=== PATIENT | male | born 1985 | race Caucasian/White ===

== ENCOUNTER → 2019-08-17 13:40 | Outpatient (CLI) | payer MEDICAID, SELFPAY ==
[2019-08-17 15:27] LABS: AST(SGOT) 21 U/L (15-37); Alanine Aminotransfer ALT/SGPT 29 U/L (16-61); Albumin, Serum 4.5 g/dL (3.2-5.0); Alkaline Phosphatase 79 U/L (45-117); Bilirubin, Direct 0.16 mg/dL (0.00-0.30); Globulin 3.5 g/dL (2.2-4.2)
[2019-08-18 11:51] LABS: Hepatitis B Surface Antigen Non-Reactive (Nonreactive); Hepatitis C Antibody Non-Reactive (Nonreactive)
== END ==
DX: R11.0 Nausea (principal); R53.81 Other malaise; R63.0 Anorexia
CPT/HCPCS: 36415; 80076; 86803; 87340

== ENCOUNTER 2019-10-03 19:21 | Emergency (ER) | payer MEDICAID, SELFPAY ==
[2019-10-03 19:22] VITALS: BP 124/69; PULSE 75; RESP 14; TEMP 36.4; O2SAT 96; BMI 23.9
--- NOTE | 2019-10-03 20:22 | ED.VISSUMM ---
- ER Visit Summary Date of Service: 10/03/19 Chief Complaint: Cough, vomiting and diarrhea History of Present Illness: The patient is a 34 M with no primary care physician. He reports that he has periumbilical abdominal pain that began 3 days ago. Is a cramping pain Zeta 10 at worst and 6 out of 10 currently. Is worsened by work. Is relieved by sleep. He reports he said nausea and been vomiting. He is vomited twice. No blood in his emesis. He has 4-5 episodes of diarrhea. No blood in stools or black tarry stools. Patient also complains of subjective fever, chills, myalgias. He has sinus drainage and a cough productive yellow sputum without blood. He denies any chest pain or shortness of breath. No sore throat. Physical Examination: Vitals: Stable. Afebrile. General: Well-nourished and well-developed. Head: Normocephalic atraumatic. Neck: Supple, no lymphadenopathy. No JVD. Nontender. Cardiovascular: Regular rate and rhythm. No murmurs. Respiratory: No respiratory distress. Clear to auscultation bilaterally. Abdominal: Soft, nontender, nondistended, normal bowel sounds. No guarding, rebound, or peritoneal signs. Back: Nontender. Extremities: Nontender, no edema. Skin: Normal color, no rash. Neurologic: Alert and oriented ?3. Cranial nerves II through XII are intact. Normal strength and sensation. Psych: Normal affect. Emergency Department Course and Treatment: Patient refused an IV, blood work, or influenza test. He did not want anything for nausea or pain. Treatment Plan: Patient be discharged with Zofran. Instructed to push fluids. [facility] 3 to 5 days if not improving. Return to the emergency department for any worsening symptoms. Disposition: To home in improved and stable condition. Impression: 1. URI. 2. Vomiting/diarrhea. This note was generated with [employer] dictation software. It may contain incorrect words, spelling, and punctuation that were not noted in review of the chart prior to signing ED Disposition - Plan for ED Patient: Disposition: Home or Assisted Living Instructions: VOMITING AND DIARRHEA, Nonspecific (Adult) Prescriptions: Ondansetron [Zofran Odt] 4 mg PO Q8H PRN PRN #10 tab PRN Reason: Nausea Prescription Printed Referrals: Viky Mcduffie [NON-STAFF] - 3-5 Days if not improving
[2019-10-03 20:41] VITALS: RESP 16
== END 2019-10-03 20:42 | disposition home or self-care (01) ==
LOC: ED 20:35
PROVIDERS: Emergency Provider Emergency Medicine
DX: J06.9 Acute upper respiratory infection, unspecified (principal); R11.2 Nausea with vomiting, unspecified; R19.7 Diarrhea, unspecified; R10.33 Periumbilical pain; F17.200 Nicotine dependence, unspecified, uncomplicated
CPT/HCPCS: 99282

== ENCOUNTER 2019-11-17 12:39 | Emergency (ER) | payer MEDICAID, SELFPAY ==
[2019-11-17 12:39] VITALS: BP 141/76; PULSE 74; RESP 16; TEMP 36.2; O2SAT 95; BMI 25.0
--- NOTE | 2019-11-17 14:21 | ED.DCSUM_ITS ---
History of Present Illness Chief Complaint: Other, Pain/Inj Informant: Patient Onset: Today Context: Gradual Onset Timing: Continuous Narrative: Patient is a 34-year-old male with no significant past medical history pres enting with atraumatic right neck pain. Patient states he did not sleep well last night and noticed that his neck was bothering him. He feels that there is a knot in his neck. Patient states he has had this 2 or 3 times in the past. It only seems to be associated with stress. Has not taken anything for the pain. He has no associated headache. He denies any vision changes. He denies any fever or chills. He has difficulty swallowing. Denies any voice changes. Eyes any other complaints at this time. Past Medical History - Allergies and Home Meds Allergies/Adverse Reactions: Allergies No Known Allergies Allergy (Verified 10/03/19 19:21) Primary Care Physician: Care Physician,No Primary [Primary Care Provider] - Past Medical History: None Surgical History: noncontributory Smoking Status: Current every day smoker Review of Systems General: Denies: Chills, Fever, Sweats Eyes: Denies: Visual changes - bilaterally, Diplopia ENT: Denies: Rhinorrhea, Sore throat Cardiovascular: Denies: Chest pain, Palpitations Respiratory: Denies: Dyspnea, Cough, Dyspnea on exertion Gastrointestinal: Denies: Abdominal pain, Nausea, Vomiting, Diarrhea, Melena, Hematochezia Genitourinary: Denies: Dysuria, Hematuria, Frequency Musculoskeletal: Reports: Neck pain. Denies: Myalgias, Back pain, Extremity Pain Skin: Denies: Rash, Wounds Neurological: Denies: Headache, Weakness, Numbness Physical Exam Vital Signs/Narrative: Vital Signs Temp Pulse Resp BP Pulse Ox 11/17/19 12:39 97.2 F L 74 16 141/76 H 95 Inital Vital Signs reviewed: Yes General: Well nourished, Well developed, No Acute Distress Head: Normocephalic, Atraumatic Eyes: Perrl, EOMI ENT: Moist mucous membranes, No rhinorrhea, TM's clear Neck: Supple, No lymphadenopathy, No JVD, - - Meningeal signs. No midline tenderness. Right paraspinal tenderness to palpation with associated knot of the muscle. Cardiovascular: Regular rate, Regular rhythm, No murmurs Respiratory: No distress, CTA bilaterally, Chest nontender Abdomen: Soft, Nontender, Nondistended, Normal bowel sounds Back: Nontender, Normal Inspection Extremities: Nontender, No edema Skin: Normal color, No rash Neurological: Alert, Oriented x3, Cranial nerves II-XII grossly intact, Normal Strength, Normal Sensation Psychological: Normal affect, Normal Mood Diagnostic/Tx/Re-eval - Medical Decision Making Evaluate for neck pain. Appears to be secondary to muscle spasm. He will be started on NSAID therapy for this. He is offered a muscle relaxant but declines it. He is counseled on warm heat for the spasm. He will be referred for a PCP as he does not currently have 1. Patient is well-appearing. I do not think imaging or lab work is indicated at this time. Patient is counseled on signs and symptoms requiring return to the emergency room. Patient verbalizes agreement and understand this plan. Patient discharged home in stable and improved condition. ED Disposition - Plan for ED Patient: Disposition: Home or Assisted Living Diagnosis: Muscle spasms of neck Instructions: NECK SPASM, No Trauma Prescriptions: Ibuprofen [Motrin] 600 mg PO Q8H PRN PRN #20 tab PRN Reason: Pain/Inflammation Prescription Printed Referrals: Lidia Osorio MD [STAFF PHYSICIAN] -
[2019-11-17] MEDS: Ibuprofen 600 MG Tablet PO (14:28)
== END 2019-11-17 14:33 | disposition home or self-care (01) ==
LOC: ED 14:26
PROVIDERS: Emergency Provider Emergency Medicine
DX: M62.838 Other muscle spasm (principal); M54.2 Cervicalgia; F17.200 Nicotine dependence, unspecified, uncomplicated
CPT/HCPCS: 99283

== ENCOUNTER 2020-01-10 15:41 | Emergency (ER) | payer MEDICAID, SELFPAY ==
[2020-01-10 15:42] VITALS: BP 123/75; PULSE 62; RESP 18; TEMP 36.7; O2SAT 100; BMI 22.8
--- NOTE | 2020-01-10 16:08 | ED.VISSUMM ---
- ER Visit Summary Date of Service: 01/10/20 Chief Complaint: [Laceration left forearm] History of Present Illness: The patient is a 34 M [presents the emergency department via EMS with a laceration to his left forearm. Patient states that he was cutting some frozen sausages and he was trying to get several that were stuck together apart and knife slipped and accidentally lacerated his left forearm. There is a question as to what actually happened and that patient initially told EMS that he was cutting open a bag of Doritos. Patient apparently also has a next-door neighbor that called the police and had concerns about potentially self-inflicted wound given that he was believed to been arguing with his girlfriend who is in [place]. Patient denies suicidal ideation or desire to harm himself. He does state that he has been arguing with his girlfriend for some time who is in [place] because she is not coming up to be with him in [place] and she has been in [place] for the last 5 months. Patient states that he got himself clean off of opiates and finished intense outpatient therapy and has been clean for the last 5 months. He denies feeling depressed or suicidal.] Physical Examination: HEENT-PERRLA, EOMI. Cranial nerves II through XII grossly intact. TMs clear. Mucous membranes moist. No adenopathy. Cardiovascular-regular rate and rhythm without murmur or ectopy Lungs-clear to auscultation, chest wall stable without crepitus or subcu emphysema Abdomen-normoactive bowel sounds, soft, nontender, no rebound or rigidity, no peritoneal signs. Extremities-intact ?4, normal range of motion, normal pulses. Left forearm-patient has a 4 cm horizontal laceration over the mid volar forearm. It is into the fat. No tendon involvement noted. He has normal range of motion of all digits in flexion extension against resistance. He is neurovascular intact. [] Test Results: None indicated [] Emergency Department Course and Treatment: [Laceration repair-wound sterilely draped and prepped. Wound cleansed with Shur-Clens and irrigated with copious saline. Wound anesthetized locally with 1% lidocaine total of 5 cc. Using 5-0 nylon a total of 6 single ruptured sutures placed with good wound edge approximation. Patient taught procedure well. Clean dressing applied.] Treatment Plan: Follow-up with physician onboarding specialist for no doc in 10 days for suture removal. Patient advised to return if increasing pain, redness, swelling, purulent drainage, or condition should worsen anyway. Patient will receive a tetanus booster. [] Disposition: Discharged home in stable condition [] Impression: [Left forearm laceration 4 cm-simple repair] This note was generated with [employer] dictation software. It may contain incorrect words, spelling, and punctuation that were not noted in review of the chart prior to signing ED Disposition - Plan for ED Patient: Referrals: Care Physician,No Primary [Primary Care Provider] -
--- NOTE | 2020-01-10 16:12 | ED.DEP ---
ED Disposition - Plan for ED Patient: Instructions: LACERATION, Extrem (Suture, Staple or Tape) Referrals: Care Physician,No Primary [Primary Care Provider] - Rafi Vaca III, MD [STAFF PHYSICIAN] - 10 Day for suture removal
[2020-01-10] MEDS: Diphth,Pertuss(Acell),Tet Vac 0.5 ML Vial IM (16:26)
--- NOTE | 2020-01-10 16:40 | CM.ED ---
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 INTRODUCED ROLE AND REASON FOR REFERRAL. PATIENT REPORTS DOES NOT HAVE TRANSPORTATION HOME. DISCUSSED OPTIONS. PATIENT DECIDED TO WALK HOME. PATIENT INQUIRED ABOUT TAKING A BLANKET HE DID NOT HAVE A COAT. RIANA CARRENO OBTAINED SWEATSHIRT FROM [facility] FOR PATIENT. PLAN: HOME Shaina AMIN MSW, FLOOR INSTALLER.
== END 2020-01-10 16:51 | disposition home or self-care (01) ==
LOC: ED 16:08
PROVIDERS: Emergency Provider Emergency Medicine
DX: S51.812A Laceration without foreign body of left forearm, initial encounter (principal); W26.0XXA Contact with knife, initial encounter; Y93.9 Activity, unspecified; Y92.9 Unspecified place or not applicable; Z72.0 Tobacco use
CPT/HCPCS: 12002; 90471; 90715; 99284

== ENCOUNTER 2020-01-20 15:00 | Emergency (ER) | payer MEDICAID, SELFPAY ==
[2020-01-20 15:01] VITALS: BP 128/70; PULSE 86; RESP 14; TEMP 36.6; O2SAT 100; BMI 25.3
--- NOTE | 2020-01-20 15:13 | ED.VISSUMM ---
- ER Visit Summary Date of Service: 01/20/20 Chief Complaint: Suture removal History of Present Illness: The patient is a 34 M with no primary care physician. Ports 2 weeks ago he cut his left forearm with a knife. His tetanus is up-to-date. He had stitches placed. He denies any drainage, pain, or fever. Physical Examination: Vitals: Stable. Afebrile. General: Well-nourished and well-developed. Head: Normocephalic atraumatic. Neck: Supple, no lymphadenopathy. No JVD. Nontender. Cardiovascular: Regular rate and rhythm. No murmurs. Respiratory: No respiratory distress. Clear to auscultation bilaterally. Abdominal: Soft, nontender, nondistended, normal bowel sounds. No guarding, rebound, or peritoneal signs. Back: Nontender. Extremities: Well-healed incision to his left forearm. No evidence of infection. [address] Nontender, no edema. Skin: Normal color, no rash. Neurologic: Alert and oriented ?3. Cranial nerves II through XII are intact. Normal strength and sensation. Psych: Normal affect. Emergency Department Course and Treatment: Patient's had his sutures removed. He tolerated this well. Treatment Plan: Instructed to follow-up with the [facility] as needed. Disposition: To home in improved and stable condition. Impression: 1. Suture removal left forearm. This note was generated with [employer] dictation software. It may contain incorrect words, spelling, and punctuation that were not noted in review of the chart prior to signing ED Disposition - Plan for ED Patient: Instructions: ED Stitches/Staple Removal No Complication Referrals: Viky Mcduffie [NON-STAFF] - As Needed
[2020-01-20 15:40] VITALS: BP 114/65; PULSE 74; RESP 18; O2SAT 98
== END 2020-01-20 15:50 | disposition home or self-care (01) ==
LOC: ED 15:30
PROVIDERS: Emergency Provider Emergency Medicine
DX: Z48.02 Encounter for removal of sutures (principal); F17.200 Nicotine dependence, unspecified, uncomplicated
CPT/HCPCS: 99282

== ENCOUNTER 2020-02-07 08:39 | Emergency (ER) | payer MEDICAID, SELFPAY ==
[2020-02-07 08:40] VITALS: BP 138/77; PULSE 81; RESP 18; TEMP 36.7; O2SAT 99; BMI 25.8
--- NOTE | 2020-02-07 09:02 | RAD_ITS ---
STUDY: X-RAY CHEST REASON FOR EXAM: Male, 34 years old. Cough, fever -- general illness x 1 week TECHNIQUE: Single AP portable view of the chest. COMPARISON: Comparison is made with prior examination dated July 04, 2017. FINDINGS: The lungs are clear and expanded. There is no demonstrated pleural abnormality. Normal size heart. Normal mediastinum and anselmo. Normal visualized pulmonary arteries. Normal visualized aortic arch and descending thoracic aorta. Normal visualized thoracic spine. Normal visualized ribs, clavicles, and shoulders. There is no demonstrated abnormality of the visualized soft tissue structures of the upper abdomen. RAD/Chest 1 View (Portable) IMPRESSION: Normal x-ray examination of the chest. Electronically Signed: Anup Watts, at 10:41 EDT , Service support ,
--- NOTE | 2020-02-07 09:03 | CT_ITS ---
STUDY: CT ABDOMEN AND PELVIS WITH CONTRAST REASON FOR EXAM: Male, 34 years old. FEVER, SOB, ABD PAIN RADIATION DOSAGE (If Supplied By Facility): CTDIvol = ( 10.845 ) mGy, DLP = ( 420.61 ) mGycm TECHNIQUE: Transaxial images were obtained from the dome of the diaphragm to the symphysis pubis with oral contrast. Oral and amp; IV Gastrografin and amp; 100mL Isovue-370 was administered. Sagittal and coronal images were reconstructed. Individualized dose optimization techniques were used for this CT. COMPARISON: None. FINDINGS: Minimal bibasilar atelectasis. The visualized portions of the heart are within normal limits. Normal liver. Normal gallbladder and extrahepatic biliary system. Normal spleen. Normal pancreas. Normal bilateral adrenal glands. Normal right kidney. There is a 1.1 cm cyst in the lower pole of the left kidney. Normal visualized stomach. Normal small intestine. Normal colon. The appendix is visualized and appears normal. Normal abdominal aorta. Normal inferior vena cava. Normal retroperitoneum. Normal urinary bladder. Normal abdominal wall. Normal osseous structures. CT/Abdomen/Pelvis WITH Contrast IMPRESSION: Normal enhanced CT of the abdomen and pelvis. Electronically Signed: Anup Watts, at 12:10 EDT , Service support ,
--- NOTE | 2020-02-07 09:12 | ED.VISSUMM ---
- ER Visit Summary Date of Service: 02/07/20 Chief Complaint: Fever, myalgias History of Present Illness: The patient is a 34 M presenting with fever and myalgias. Patient states this has been ongoing for the past week. He states he has had intermittent subjective fevers. He has not checked his temperature. He complains of chills. He has had a nonproductive cough and mild shortness of breath. He also complains of lower abdominal pain and diarrhea. Denies nausea or vomiting. He also complains of dysuria. Denies penile discharge or rash. He stopped taking Suboxone 2 weeks ago. States he has been in withdrawal before and this does not feel like his typical withdrawal symptoms. Denies sick contacts. Denies recent travel. Denies other complaints. Physical Examination: Vitals are stable. Patient is afebrile. Alert no acute distress. Pulse ox 99% on room air HEENT exam is unremarkable. Neck is supple. No meningismus Lungs are clear and equal bilaterally. No respiratory distress Heart is regular rate and rhythm. Abdomen is soft mild lower quadrant tenderness with no guarding rebound : No testicular tenderness Extremities are unremarkable. Skin is warm and dry. No rash No focal neurologic deficit. Remainder of exam is unremarkable. Emergency Department Course and Treatment: Patient was given IV fluids, Toradol, Zofran. CBC, chemistries unremarkable. Urinalysis unremarkable. Influenza negative. Chest x-ray normal. CT abdomen pelvis was obtained and shows normal enhanced CT of the abdomen and pelvis. On reevaluation, patient is feeling improved. He is given prescription for Bentyl. Due to the current coronavirus pandemic, he is advised to self quarantine and use social distancing. Advised to follow-up with primary care physician. Advised return to ED for worsening complaints. Disposition: Discharge home Impression: Viral syndrome This note was generated with [employer] dictation software. It may contain incorrect words, spelling, and punctuation that were not noted in review of the chart prior to signing ED Disposition - Plan for ED Patient: Instructions: ED Viral Syndrome Prescriptions: Dicyclomine HCl [Bentyl] 20 mg PO TIDAC #20 cap Prescription Printed Ibuprofen [Ibu] 600 mg PO TID PRN PRN #30 tab PRN Reason: Fever Prescription Printed Referrals: Calvin Jimenez MD [STAFF PHYSICIAN] - Care Physician,No Primary [Primary Care Provider] -
[2020-02-07] MEDS: 0.9% Normal Saline 1,000 ML 1000 ML IV (09:15)
[2020-02-07 09:43] LABS: Bacteria 0 SEEN /hpf (None Seen); Mucous, Urine 0 SEEN /hpf (<or=2+); Red Blood Cells-Urine 0 SEEN /hpf (0-5); White Blood Cells 0 SEEN /hpf (0-5)
[2020-02-07 09:47] LABS: Absolute Lymphocyte Count 3.13 X10^3/uL (0.83-4.51); Absolute Neutrophil Count 5.5 X10^3/uL (2.0-7.7); Basophil# 0.04 X10^3/uL; Basophil% 0.4 % (0-1); Eosinophil# 0.16 X10^3/uL; Eosinophils% 1.7 % (0-5); Hematocrit 43.2 % (40-54); Hemoglobin 14.4 g/dL (13.0-16.5); Lymphocyte # 3.13 X10^3/ul (4.0); Lymphocyte % 32.5 % (19-41); Mean Corp Hgb Conc 33.3 g/dL (32-36); Mean Corpuscular Hgb 27.4 pg (27.0-32.0); Mean Corpuscular Volume 82.3 fL (80-94); Mean Platelet Vol. 9.2 fl (6.2-12.0); Monocyte# 0.72 X10^3/uL; Monocyte% 7.5 % (0-10); NRBC Flagged by Analyzer 0 % (0-5); Neutrophil # 5.47 X10^3/uL (2.7-7.7); Neutrophil % 56.9 % (47-70); Platelet Count 222 K/mm3 (150-450); RBC Distribution Width SD 38.5 fl (35.1-43.9); Red Blood Count 5.25 M/mm3 (4.6-6.2); White Blood Count 9.6 K/mm3 (4.4-11.0)
[2020-02-07 10:00] LABS: Color, Urine Yellow (Yellow); Glucose, Dipstick Normal (Normal); Ketone-Dipstick Negative (Negative); Leukocyte Esterase-Dipstick Negative /ul (Negative); Nitrite-Dipstick Negative (Negative); Occult Blood-Urine Negative /ul (Negative); Protein-Dipstick Negative (Negative); Urine Bilirubin Dipstick Negative (Negative); Urine Clarity Clear (Clear); Urine Urobilinogen Normal (Normal); Urine pH 6.5 (5.0 - 8.0)
[2020-02-07 10:05] LABS: Anion Gap 5 (5-15); BUN 9 mg/dL (7-18); BUN/Creat Ratio 10.3 RATIO (10-20); Calcium,Total 9.1 mg/dL (8.5-10.1); Chloride 111 mmol/L (98-107); Creatinine, Serum 0.87 mg/dL (0.70-1.30); EST Glomerular Filtration Rate 107 mL/min (>60); Est Glom Filt Rate - Afr Amer 130 mL/min (>60); Estimated Creatinine Clearance 113.97 ml/min; Glucose 73 mg/dL (74-106); Potassium 3.8 mmol/L (3.5-5.1); Sodium Level 142 mmol/L (136-145)
[2020-02-07 10:14] LABS: Squamous Epithelial Cells - UA 0-5 SEEN /hpf (0-5)
[2020-02-07] MEDS: Ketorolac 15 MG/ML Vial IV (10:15)
[2020-02-07] MEDS: Ondansetron 4 MG/2 ML Vial IV (10:15)
[2020-02-07 11:52] VITALS: RESP 18
--- NOTE | 2020-02-07 12:12 | ED.DEP ---
ED Disposition - Plan for ED Patient: Instructions: ED Viral Syndrome Prescriptions: Dicyclomine HCl [Bentyl] 20 mg PO TIDAC #20 capsule Ibuprofen [Ibu] 600 mg PO TID PRN PRN #30 tablet PRN Reason: Fever Referrals: Care Physician,No Primary [Primary Care Provider] - Calvin Jimenez MD [STAFF PHYSICIAN] -
== END 2020-02-07 12:37 | disposition home or self-care (01) ==
PROVIDERS: Emergency Provider Emergency Medicine
DX: B34.9 Viral infection, unspecified (principal); R68.83 Chills (without fever); R05 Cough; R06.00 Dyspnea, unspecified; R10.30 Lower abdominal pain, unspecified; R19.7 Diarrhea, unspecified; R30.0 Dysuria; M79.10 Myalgia, unspecified site
CPT/HCPCS: 71045; 74177; 80048; 81001; 85025; 87804; 96361; 96374; 96375; 99285; J7030; Q9967; A4216; J2405

== ENCOUNTER 2020-02-29 21:41 | Emergency (ER) | payer MEDICAID, SELFPAY ==
[2020-02-29 21:41] VITALS: BP 142/96; PULSE 114; RESP 18; TEMP 36.1; O2SAT 97; BMI 23.6
[2020-02-29 21:44] VITALS: BP 142/96; PULSE 114; RESP 18; TEMP 36.1; O2SAT 97
--- NOTE | 2020-02-29 22:00 | ED.VIS.GEN ---
History of Present Illness Chief Complaint: Diarrhea Informant: Patient Onset: Days - 2 days Current Severity: Mild Maximum Severity: Mild Narrative: Patient presents with a 2-day history of diarrhea and mild abdominal cramping. No fever or chills. He states he does work at [employer] but is unsure if he may have food poisoning. He was seen here on February 06 with fever myalgias. At that time he had some abdominal pain and diarrhea as well. Labs and CT scan were unremarkable. - Past Medical History (1) Substance abuse Status: Chronic Past Medical History - Allergies and Home Meds Allergies/Adverse Reactions: Allergies No Known Allergies Allergy (Verified 02/07/20 08:42) Primary Care Physician: Care Physician,No Primary [Primary Care Provider] - Prior records reviewed: Yes Surgical History: noncontributory Smoking Status: Current every day smoker Drugs: Heroin, - - Methamphetamine Review of Systems General: Denies: Chills, Fever Eyes: Denies: Visual changes - bilaterally ENT: Denies: Bilateral ear pain Cardiovascular: Denies: Chest pain Respiratory: Denies: Dyspnea, Cough Gastrointestinal: Reports: Abdominal pain, Diarrhea. Denies: Vomiting Genitourinary: Denies: Dysuria Musculoskeletal: Denies: Extremity Pain Skin: Denies: Rash Neurological: Denies: Headache Hematologic: Denies: Easy bruising, Easy bleeding Allergy: Denies: Uticaria Physical Exam Vital Signs/Narrative: Vital Signs Temp Pulse Resp BP Pulse Ox 02/29/20 21:44 96.9 F L 114 H 18 142/96 H 97 02/29/20 21:41 96.9 F L 114 H 18 142/96 H 97 Inital Vital Signs reviewed: Yes General: Well nourished, Well developed Head: Normocephalic ENT: Moist mucous membranes Neck: Supple Cardiovascular: Regular rate, Regular rhythm Respiratory: No distress, CTA bilaterally Abdomen: Soft, Nontender, Hypoactive bowel sounds Extremities: Nontender Skin: Normal color Neurological: Alert, Oriented x3 Psychological: Normal affect Diagnostic/Tx/Re-eval - Medical Decision Making Patient's recent work-up was reviewed. Labs were normal just a couple weeks ago. This is not repeated again tonight. Patient was given IM Toradol and Bentyl. He was given p.o. Zofran. On repeat evaluation patient is feeling improved. He will be given a prescription for Bentyl. 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 ED Disposition - Plan for ED Patient: Disposition: Home or Assisted Living Diagnosis: Diarrhea Instructions: ED Vomiting and Diarrhea Nonspecific Adult Prescriptions: Dicyclomine HCl [Bentyl] 20 mg PO TIDAC #20 cap Transmission Status: Pending to [email or web address] #[email or web address] Referrals: Carmita Benitez MD [STAFF PHYSICIAN] - As Needed
[2020-02-29] MEDS: Ondansetron ODT 4 MG Tablet PO (22:09)
[2020-02-29] MEDS: Ketorolac 60 MG/2 ML Vial IM (22:09)
[2020-02-29] MEDS: Dicyclomine 20 MG/2 ML Vial IM (22:09)
[2020-02-29 22:42] VITALS: BP 136/84; PULSE 110; RESP 16; O2SAT 98
--- OUTSIDE RECORDS SUMMARY | 2020-07-31 10:12 | XMS RPT_ITS | CCD ---
:1985 External Reference #:[id number] Author Organization [facility] Care Team Providers Name Role Phone LO Garza Unavailable Unavailable PHYSICIAN Unavailable Unavailable Sushila TERRELL Unavailable Unavailable PHYSICIAN Unavailable Unavailable PHYSICIAN Unavailable Unavailable Panda LEON Unavailable Unavailable BREJUSITN, IGrover Unavailable Unavailable PHYSICIAN Unavailable Unavailable Jose De Jesus SHRESTHA Unavailable Unavailable [facility] Unavailable Unavailable Otilio Ledesma Unavailable MD LATISHA Admitting Unavailable MD LATISHA Attending Unavailable MD LATISHA Primary Care Unavailable Problems Active Problems Category Problem Name Status Date Location Unclassified Unknown / UNK(Unknown) Active 12-14-2017 - [facility] [place] ([address]26) Past or Other Problems Category Problem Name Status Date Location Fracture of upper limb Other displaced Completed 05-06-2017 [facility] fracture of base of (38980) first metacarpal bone, left hand, initial encounter for closed fracture Other connective tissue Hand pain Completed 05-06-2017 [facility] disease (54717) Other non-traumatic Pain in wrist Completed 05-06-2017 [facility] joint disorders (88325) Other non-traumatic Pain in left shoulder Completed 05-06-2017 [facility] joint disorders (55841) Other nutritional; Unexplained weight Completed 05-06-2017 [facility] endocrine; and loss (12493) metabolic disorders Unclassified Z79.899,E55.9 12-14-2017 [facility] [place] (58554) Results Result Name Value Range Unit Interpretation Flag Date Location emergency report on 2019-08-12 EMERGENCY REPORT [facility] Normal 08-12 [facility] EMERGENCY ROOM REPORT Hospital ([id number]) NAME ACCOUNT SEX AGE ADMIT DISCHARGE PT MED. RECORD# NUMBER DATE DATE TYPE DANICA ISRAEL [id number] M 34 08/05/19 08/05/19 3 W [id number] ROOM: ER DATE OF : 1985 DICTATING PHYSICIAN: Carisa Klein HISTORY OF PRESENT ILLNESS: This patient is a 34-year-old ma le with no significant past medical history who presents to the Emergency Department for evaluation for burning with urination as well as bilateral testicular pain. The patient states that the pain in his testicles is only present when he is urinating. He also endorses having a new sexual partner in the last 2 days. He, however, denies any penile discharge or penile u lcers. The patient also denies any fevers, chills, abdominal pain, nausea, vomiting, or flank pain. REVIEW OF SYSTEMS: Negative for fevers, chills, chest pain, shortness of breath, abdominal pain, nausea, vomi ting, diarrhea, or hematochezia. Positive for burning with urination with no increasing frequency, no urgency, no penile ulcers, and no penile discharge with testicular pain. PHYSICAL EXAMINATION: This i s a eze-ghf-zrtycvfla male resting comfortably in bed. HEENT: The patient is in no distress with no cervical lymphadenopathy. Oropharynx with clear, moist mucous mem branes and no exudates or edema. Patient with no ulcers appreciated. Lungs: Lungs ar e clear to auscultation bilaterally with no wheezes or crackles appreciated. Heart: Heart rate and rhythm are regular with no murmurs appreciated. Abdomen: Abdomen is soft, nontender , and nondistended with bowel sounds present in all quadra nts. : Penis is normal-appearing, circumcised, with no penile discharge appreciated . Bilateral testicles are in vertical lie with no edema or erythema appreciated. Patien t with no tenderness to palpation of the testicles. MEDICAL DECISION-MAKING/EMERGENCY DEPARTMENT COURSE AND TREATMENT: The patient's pre sentation is concerning for urinary tract infection versus STI. Samples obtained for ST I work-up. The patient was offered empiric treatment with Rocephin and Zithromax, whic h the patient agreed to. I educated the patient that if his Trichomonas comes back positive we will treat him with Flagyl. The patient was agreeable with this plan. I also educated the patient if his urinalysis is positive for a UTI, we will treat him with antibiotics, which the patient is agr eeable to. I was notified by nursing th at the patient is endorsing suicidal ideation with no plan, stating that he is tired of living in this world. I reevaluated the patient. The patient is denying suicidal or homicida l ideation to me. The patient, however, states he is very depressed at this time but w ould never hurt himself. He states that he is currently homeless, living behind ano ther person's house, and I have no transportation to go Page 1 of 2 DANICA ISRAEL Emergency Room Report DANICA ISRAEL : 1985 anywhere. I am stuck here in [place], and I have no way of feeding myself or taking care of myself, and I would just like help to find ways to connect with the community and help myself. I do not want t o kill myself, and I have no plans of hurting myself. I am just so tired of being so frustra leopoldo all the time. I discussed with the patient that I would contact [employer] to [facility] resources. The patient is agreeable with this plan. Since Social Serv [employer] is not available at this time, a message was left with [employer] to come and see the patient once they get he re. The patient was signed out t o Dr. Ibrahim for disposition pending [employer] consultation and urinalysis results. Dictated By: Carisa Klein MD 08/05/19 07:01 JOB #: [id number] Transcribed By: tamara 08/06/19 08:09 Electronically signed by: Latisha Younger MD 08/12/19 20:03 Page 2 of 2 DANICA ISRAEL Emergency Room Report wet prep trichomonas on 2019-08-05 WET PREP TRICHOMONAS WET PREP TRICHOMONAS Normal 08-05-2019 [facility] WET [facility] WET PREP: ([id number]) No Trich. seen Comment: Performed By: #### [id number] ## ## [facility],[address] [place] [address] urinalysis with microscopy on 2019-08-05 Amorphous NONE Normal 08-05-2019 [facility] (14847) Comment: Performed By: #### [id number] ## ## [facility],[address] [place] [address] 91634 Bacteria LM.HPF (Urine sed) NONE Normal [facility] [#/Area] [facility] ( 60310) Comment: Performed By: #### [id number] ## ## [facility],[address] [place] [address] 28255 Bilirubin [Mass/Vol] NEG NORMAL: NEGATIVE mg/dL Normal [facility] (08753) Comment: Performed By: #### [id number] ## ## [facility],[address] [place] [address] 61508 Blood NEG NORMAL: NEGATIVE Normal 08-05-2019 [facility] (22237) Comment: Performed By: #### [id number] ## ## [facility],[address] [place] [address] 19253 Casts LM.LPF (Urine sed) NONE Normal 08-05 [facility] [#/Area] [facility] ( 93940) Comment: Performed By: #### [id number] ## ## [facility],[address] [place] [address] 51552 Clarity (U) clear NORMAL: CLEAR Normal 08-05-2019 [facility] (54224) Comment: Performed By: #### [id number] ## ## [facility],[address] [place] [address] 60837 Color (U) p.yel NORMAL: YELLOW Normal 08-05-2019 [facility] (14663) Comment: Performed By: #### [id number] ## ## [facility],[address] [place] [address] 06787 Crystals LM Nom (Urine sed) NONE Normal [facility] ( 17794) Comment: Performed By: #### [id number] ## ## [facility],[address] [place] [address] 64729 Epi Cells NONE Normal 08-05-2019 [facility] (27915) Comment: Performed By: #### [id number] ## ## [facility],[address] [facility] [address] Glucose [Mass/Vol] NORM NORMAL: NORMAL Normal 2018 [facility] ( 13496) Comment: Performed By: #### [id number] ## ## [facility],[address] [place] [address] 26819 Ketone NEG NORMAL: NEGATIVE Normal 08-05-2019 [facility] (38932) Comment: Performed By: #### [id number] ## ## [facility],[address] [place] [address] 00209 Mucous NONE Normal 08-05-2019 [facility] (01636) Comment: Performed By: #### [id number] ## ## [facility],[address] [place] [address] 18297 Nitrite Ql (U) NEG NORMAL: NEGATIVE Normal 08-05-20 [facility] ( 86588) Comment: Performed By: #### [id number] ## ## [facility],[address] [place] [address] 44501 pH (Bld) 6 NORMAL: 5.0-8.0 Normal 08-05-2019 [facility] (27378) Comment: Performed By: #### [id number] ## ## [facility],[address] [place] [address] 22208 Protein (U) NEG NORMAL: NEGATIVE mg/dL Normal 08-05-2019 [facility] [Mass/Vol] [facility] (05243) Comment: Performed By: #### [id number] ## ## [facility],[address] [place] [address] Rbc NONE 0-3 / hpf Normal 08-05-2019 [facility] (39474) Comment: Performed By: #### [id number] ## ## [facility],[address] [place] [address] Sp Laura 1.010 NORMAL: 1.010-1.030 Normal 9 [facility] ( 45636) Comment: Performed By: #### [id number] ## ## [facility],[address] [place] [address] Specimen type Nom (Spec) Void Normal 08-05 [facility] (18685) Comment: Performed By: #### [id number] ## ## [facility],[address] [place], [place] [address] URINALYSIS WITH MICROSCOPY Normal [facility] (88881) Comment: Result Comment: URINALYSIS Performed By: #### [id number] ## ## [facility],[address] [place] [address] Urobilinog NORM NORMAL: NORMAL Normal 08-05-2019 [facility] (98632) Comment: Performed By: #### [id number] ## ## [facility],[address] [place], [place] [address] Wbc NONE 0-5 / hpf Normal 08-05-2019 [facility] (90880) Comment: Performed By: #### [id number] ## ## [facility],[address] [place] [address] 06760 WBC (Bld) [#/Vol] NEG NORMAL: NEGATIVE 10*3/uL Normal 08-05 [facility] (21855) Comment: Result Comment: URINE MICROS COPIC Performed By: #### [id number] ## ## [facility],[address] [place] [address] 33832 Yeast LM Ql (Urine sed) NONE Normal 2018 [facility] (99056) Comment: Performed By: #### [id number] ## ## [facility],[address] [facility] [address] tropi on 2018-10-05 Troponin I.cardiac <0.015 0.000-0.040 ng/mL Normal 10-05- 8 [facility] ([place]) (05847) Comment: Result Comment: Troponin I r eference ranges (06/26/14): 0.00-0.040 ng/mL Negative and non-diagnostic. >0.040 ng/mL Consistent with cardiac damage, increased clinical risk and possibility of myocardial infarction. Serial measurements, a rise & fall in test results, clinical history, appropriate symptoms and/or ECG changes may help assess possibility of IN. *Other non-acute coronary syndrome conditions such as CHF, myocarditis, pulmonary emboli, sepsis and cardiac s urgery could result in myocardial damage and increased troponin levels. Performed By: #### TROPI ### [address] [address] erds on 2018-10-04 Acetaminophen [facility] conc <2.0 10.0-30.0 Low 2017 [facility] ([place]) (0000 0) Comment: Performed By: #### ADIFF, ER DS, CMP, GFR, CBC, ANEU ####[address] [address] ER Drug Screen (s) Negative Normal 10-04-2018 [facility] ([place]) (77310) Comment: Performed By: #### ADIFF, ER DS, CMP, GFR, CBC, ANEU ####[address] 44 [address] ER Drug Screen Serum shows no Invalid Interpretati on 10-04-2018 [facility] evidence of drugs Code Fo undation ([place]) routinely (82730) screened Comment: Performed By: #### ADIFF, ER DS, CMP, GFR, CBC, ANEU ####[address] 44 052 ER Serum Drugs Screened: See Below Normal 10-04 [facility] ([place]) (0000 0) Comment: Result Comment: This drug sc reen is a presumptive screening only. No confirmation will be perform ed unless requested.Drugs included in the ER serum drug screen are: Thres holdEthanol 10.0 mg/dLSalicylate 2.0 mg/dLAcetaminophen 2.0 mcg/m LTricyclic Antidepressants 300 ng/mLTesting has been performed FOR MEDICAL P URPOSES ONLY. Performed By: #### ADIFF, ER DS, CMP, GFR, CBC, ANEU ####[place] [address] Ethanol Level <10.0 Normal 10-04-2018 [facility] ([place]) (59867) Comment: Performed By: #### ADIFF, ER DS, CMP, GFR, CBC, ANEU ####[place] [address] 690 Salicylate Lvl (ds) <2.0 10.0-25.0 Low 10-04-2018 [facility] ([place]) (13276) Comment: Performed By: #### ADIFF, ER DS, CMP, GFR, CBC, ANEU ####[place] [address] 951 TCA (s) NEG Normal 10-04-2018 [facility] ([place]) (57743) Comment: Performed By: #### ADIFF, ER DS, CMP, GFR, CBC, ANEU ####[place] [address] 469 cmp on 2018-10-04 Albumin/Globulin mass ratio 1.3 0.9-1.6 ratio Normal [facility] ([place]) (42865) Comment: Performed By: #### ADIFF, ER DS, CMP, GFR, CBC, ANEU ####[place] [address] 019 ALP enzyme act/vol 96 38-126 U/L Normal 10-04-2018 [facility] ([place]) (65115) Comment: Performed By: #### ADIFF, ER DS, CMP, GFR, CBC, ANEU ####[place] [address] Bili Total 1.4 0.2-1.2 mg/dL High 10-04-2018 [facility] ([place]) (22867) Comment: Performed By: #### ADIFF, ER DS, CMP, GFR, CBC, ANEU ####[place] [address] [place] [address] 44 710 Creatinine mass conc 1.10 0.60-1.40 mg/dL Normal 8 [facility] ([place]) (0000 0) Comment: Performed By: #### ADIFF, ER DS, CMP, GFR, CBC, ANEU ####[address] 44 710 Globulin Calculated mass 3.9 1.5-3.8 G/dL High 10-04 [facility] conc (S) ([place]) (0000 0) Comment: Performed By: #### ADIFF, ER DS, CMP, GFR, CBC, ANEU ####[address] 44 710 Protein mass conc 9.0 6.0-8.5 G/dL High 10-04-2018 [facility] ([place]) (43338) Comment: Performed By: #### ADIFF, ER DS, CMP, GFR, CBC, ANEU ####[place] [address] Urea nitrogen/Creatinine 14.5 10.0-22.0 ratio Normal 10-04 [facility] ([place]) (01680) Comment: Performed By: #### ADIFF, ER DS, CMP, GFR, CBC, ANEU ####[address] 44 710 Albumin mass conc 5.1 3.2-4.8 G/dL High 10-04-2018 [facility] ([place]) (04098) Comment: Performed By: #### ADIFF, ER DS, CMP, GFR, CBC, ANEU ####[address] 44 710 ALT enzyme act/vol 37 12-55 U/L Normal 10-04-2018 [facility] ([place]) (92351) Comment: Performed By: #### ADIFF, ER DS, CMP, GFR, CBC, ANEU ####[address] 44 710 AST enzyme act/vol 30 8-34 U/L Normal 10-04-2018 [facility] ([place]) (54495) Comment: Performed By: #### ADIFF, ER DS, CMP, GFR, CBC, ANEU ####[place] [address] Calcium mass conc 9.5 8.4-10.1 mg/dL Normal 10-04-2018 [facility] ([place]) (73566) Comment: Performed By: #### ADIFF, ER DS, CMP, GFR, CBC, ANEU ####[place] [address] Chloride molar conc 100 98-110 mEq/L Normal 10-04-2018 [facility] ([place]) (83714) Comment: Performed By: #### ADIFF, ER DS, CMP, GFR, CBC, ANEU ####[place] [address] CO2 molar conc 26 22-32 mEq/L Normal 10-04-2018 [facility] ([place]) (64193) Comment: Performed By: #### ADIFF, ER DS, CMP, GFR, CBC, ANEU ####[place] [address] Electrolyte Balance 9.0 4.0-15.0 mEq/L Normal 10-04-2018 [facility] ([place]) (0000 0) Comment: Performed By: #### ADIFF, ER DS, CMP, GFR, CBC, ANEU ####[place] [address] Glucose mass conc 90 70-110 mg/dL Normal 10-04-2018 [facility] ([place]) (07974) Comment: Performed By: #### ADIFF, ER DS, CMP, GFR, CBC, ANEU ####[place] [address] Potassium molar conc 4.6 3.5-5.0 mEq/L Normal 8 [facility] ([place]) (0000 0) Comment: Performed By: #### ADIFF, ER DS, CMP, GFR, CBC, ANEU ####[place] [address] Sodium molar conc 135 136-145 mEq/L Low 10-04-2018 [facility] ([place]) (18837) Comment: Performed By: #### ADIFF, ER DS, CMP, GFR, CBC, ANEU ####[place] [address] Urea nitrogen mass conc 16.0 8.0-22.0 mg/dL Normal 2017 [facility] ([place]) (97366) Comment: Performed By: #### ADIFF, ER DS, CMP, GFR, CBC, ANEU ####[place] [address] cbc on 2018-10-04 Erythrocyte distribution 15.1 11.5-15.5 % Normal 10-04 [facility] Auto Ratio (RBC) [facility] ([place]) (05592) Comment: Performed By: #### ADIFF, ER DS, CMP, GFR, CBC, ANEU ####[place] [address] Hematocrit Auto Volume 50.1 40.0-52.0 % Normal 018 [facility] Fraction (Bld) ([place]) (69554) Comment: Performed By: #### ADIFF, ER DS, CMP, GFR, CBC, ANEU ####[place] [address] Hemoglobin mass conc 16.7 13.0-17.5 G/dL Normal 8 [facility] (Bld) [facility] ([place]) (65641) Comment: Performed By: #### ADIFF, ER DS, CMP, GFR, CBC, ANEU ####[place] [address] MCH Auto Entitic mass 27.9 27.0-33.0 pg Normal 10-04-20 18 [facility] (RBC) ([place]) (0000 0) Comment: Performed By: #### ADIFF, ER DS, CMP, GFR, CBC, ANEU ####[place] [address] MCHC Auto mass conc 33.3 32.0-36.0 G/dL Normal 10-04-2018 [facility] (RBC) ([place]) (0000 0) Comment: Performed By: #### ADIFF, ER DS, CMP, GFR, CBC, ANEU ####[place] [address] MCV Auto Entitic volume 84.0 81.0-100.0 fL Normal 10-04 [facility] ([facility]) ([place]) (0000 0) Comment: Performed By: #### ADIFF, ER DS, CMP, GFR, CBC, ANEU ####[place] [address] Platelet mean volume Auto 7.1 6.4-10.5 fL Normal 09-18 [facility] Entitic volume (d) ([place]) (81384) Comment: Performed By: #### ADIFF, ER DS, CMP, GFR, CBC, ANEU ####[place] [address] Platelets Auto #/vol 287 150-450 10 3/mcL Normal 8 [facility] ([place]) (09303) Comment: Performed By: #### ADIFF, ER DS, CMP, GFR, CBC, ANEU ####[place] [address] RBC Auto #/vol 5.97 4.50-6.00 10 6/mcL Normal 10-04-2018 [facility] ([place]) (38053) Comment: Performed By: #### ADIFF, ER DS, CMP, GFR, CBC, ANEU ####[address] 44 [address] WBC Auto #/vol 15.20 4.50-10.80 10 3/mcL High 10-04-2018 [facility] ([facility] ([place]) (61663) Comment: Performed By: #### ADIFF, ER DS, CMP, GFR, CBC, ANEU ####[place] [address] .neuabs on Neutrophil, Absolute 11.10 2.25-8.10 10 3/mcL High 8 [facility] ([place]) (72673) Comment: Performed By: #### ADIFF, ER DS, CMP, GFR, CBC, ANEU ####[place] [address] [place] [address] 44 379 .gfr on 2018-10-04 GFR Non- >60 Normal 10-04 [facility]) (74476) Comment: Result Comment: GFR Populati on mean for , Non- Americans Ages 20-29 = 116 m L/min/1.73 sq.m. Ages 30-39 = 107 mL/min/1.73 sq.m. Ages 40-49 = 99 mL/min /1.73 sq.m. Ages 50-59 = 93 mL/min/1.73 sq.m. Ages 60-69 = 85 mL/min/1.73 sq.m. Ages 70+ = 75 mL/min/1.73 sq.m.Chronic Kidney Disease: Less than 60 mL/min/1.73 square metersEnd Stage Renal Disease: Less than 15 mL/min /1.73 square meters Performed By: #### ADIFF, ER DS, CMP, GFR, CBC, ANEU ####[place] [address] [place] [address] 44 327 GFR >60 Normal 8 [facility] ([place]) (89763) Comment: Result Comment: GFR Populati on mean for , Non- Americans Ages 20-29 = 116 m L/min/1.73 sq.m. Ages 30-39 = 107 mL/min/1.73 sq.m. Ages 40-49 = 99 mL/min /1.73 sq.m. Ages 50-59 = 93 mL/min/1.73 sq.m. Ages 60-69 = 85 mL/min/1.73 sq.m. Ages 70+ = 75 mL/min/1.73 sq.m.Chronic Kidney Disease: Less than 60 mL/min/1.73 square metersEnd Stage Renal Disease: Less than 15 mL/min /1.73 square meters Performed By: #### ADIFF, ER DS, CMP, GFR, CBC, ANEU ####[place] [address] [place] [address] 44 057 .auto diff on 10-04 Ammonia mass conc 1.10 0.09-1.40 10 3/mcL Normal 10-04-2018 A [facility]) (65338) Comment: Performed By: #### ADIFF, ER DS, CMP, GFR, CBC, ANEU ####[address] 44 710 Basophils Auto #/vol 0.00 0.00-0.27 10 3/[facility] Normal 8 [facility]) (86940) Comment: Performed By: #### ADIFF, ER DS, CMP, GFR, CBC, ANEU ####[address] 44 710 Basophils/100 WBC Auto ([facility]) 0.3 0.0-2.5 % Normal 1 12-05-2017 [facility]) (0000 0) Comment: Performed By: #### ADIFF, ER DS, CMP, GFR, CBC, ANEU ####[address] 44 710 Eosinophils Auto #/vol 0.10 0.00-0.65 10 3/[facility] Normal 018 [facility]) (33392) Comment: Performed By: #### ADIFF, ER DS, CMP, GFR, CBC, ANEU ####[address] 44 710 Eosinophils/100 WBC Auto 0.9 0.0-6.0 % Normal 10-04 [facility]) (50657) Comment: Performed By: #### ADIFF, ER DS, CMP, GFR, CBC, ANEU ####[address] 44 710 Lymphocytes Auto #/vol 2.70 0.90-4.32 10 3/[facility] Normal [address] [place] [address] ([place]) (77228) Comment: Performed By: #### ADIFF, ER DS, CMP, GFR, CBC, ANEU ####[address] 44 710 Lymphocytes/100 WBC Auto 18.0 20.0-40.0 % Low 10-04 [facility] ([place]) (92892) Comment: Performed By: #### ADIFF, ER DS, CMP, GFR, CBC, ANEU ####[address] 44 710 Monocytes/100 WBC Auto (Bld) 7.5 2.0-13.0 % Normal 1 12-05-2017 [facility]) (69663) Comment: Performed By: #### ADIFF, ER DS, CMP, GFR, CBC, ANEU ####[address] 44 710 Neutrophils/100 WBC Auto 73.3 50.0-75.0 % Normal 10-04 [facility] ([facility]) [facility]) (36862) Comment: Performed By: #### ADIFF, ER DS, CMP, GFR, CBC, ANEU ####[address] 44 710 hiv 1/2 on HIV 1/O/2 QUAL NONREACTIVE NONREACTIVE Normal 12-15-2017 [facility] (00 000) Comment: Result Comment: NONREACTIVE: LESS THAN 1.0 INDEX VALUENONREACTIVE FOR ANTIBODIES TO HIV-1 AND HIV- 2 BY THE ADVIACENTAUR HIV 1/0/2 ENHANCED ASSAY Performed By: #### L200.0000 0 ####[address], [place] [address]OP# [phone] [id number] [place], [place] [address]Oh# [phone]#### L550.03855 ####[facility] [id number] [place], [place] [address]Xj# [phone] vabb19-xsldstt on [id number] 19.4 30.0-100.0 NG/ML Low 12-14-2017 [facility] (41630) Comment: Result Comment: Deficiency L ess than 20 ng/mLInsufficiency 20 - Less than 30 ng/mLSufficiency 30 - 100 ng /mL Performed By: #### L200.0000 0 ####[address], [place] [address]VM# [phone] [id number] [place], [place] [address]Kv# [phone]#### L550.87203 ####[facility] [id number] [place], [place] [address]Wg# [phone] tsh on 2017-12-14 Thyroid stimulating 1.720 0.358-3.740 UIU/ML Normal 12-14-19 18 [facility] (TSH) [facility] (63668) Comment: Result Comment: 3rd generati on ultra sensitive TSH Performed By: #### L500.0140 0, L500.78408, L500.67368, L500.85826, L500.10439, L500.63712, L540 .35908, L540.49543, L540.26089, L540.96537, L550.56749 ####[facility] [id number] [place], [place] [address]Zf# [phone] t4 free on Thyroxine (T4) free 0.88 0.76-1.46 NG/DL Normal 12-14-2017 [facility] (00 000) Comment: Performed By: #### L500.0140 0, L500.55884, L500.99055, L500.63250, L500.63294, L500.57321, L540 .50994, L540.27949, L540.78682, L540.15840, L550.79533 ####[facility] H[facility] LJGRHBMNNR5387 [place], [place] [address]Dv# [phone] lipid on 2017-12-14 Cholesterol 166 0-199 MG/DL Normal 12-14-2017 [facility] (02944) Comment: Performed By: #### L500.0140 0, L500.87623, L500.20810, L500.84938, L500.18595, L500.43039, L540 .63792, L540.72181, L540.38218, L540.06063, L550.72927 ####[facility] FSRYOVSWWX5677 [place], [place] [address]Vj# [phone] HDL Cholesterol 53 GREATER TN 40 MG/DL Normal 12-14-2017 [facility] (55791) Comment: Result Comment: Patients rec eiving Metamizole prior to venipuncture, mayhave falsely depressed results. Performed By: #### L500.0140 0, L500.06213, L500.78535, L500.42489, L500.24571, L500.00220, L540 .53613, L540.86042, L540.50226, L540.94737, L550.23941 ####[facility] MSITXDYLOT2425 [place], [place] [address]Ro# [phone] LDL Cholesterol 96 0-129 MG/DL Normal 12-14-2017 [facility] (38362) Comment: Result Comment: ___CHOLESTER OL/HDL RATIO RISK___ CHD RISK = Total CHOL LDL HDL (CHOL/HDL) Recommende d <200 <130 >35 <3.4 Borderline 200-239 130-159 3.4-4.99 High >240 >160 >5.0 Performed By: #### L500.0140 0, L500.81595, L500.87364, L500.48556, L500.26677, L500.03864, L540.26254, L540 .24790, L540.92883, L540.92199, L550.59117 ####[facility] OISOGAWKVU240 0 [place], [place] [address]Lp# [phone] Triglyceride 85 30-149 MG/DL Normal 12-14-2017 [facility] (16656) Comment: Result Comment: Patients rec eiving either N-Acetylcysteine (NAC) orMetamizole prior to venipu ncture, may have falsely depressedresults. Performed By: #### L500.0140 0, L500.14054, L500.68183, L500.74672, L500.79313, L500.00770, L540 .70648, L540.32723, L540.93866, L540.10858, L550.92402 ####[facility] QAYJZWCLSE0730 [place], [place] [address]Ho# [phone] hgb a1c glycohb on 2017-12-14 Hemoglobin A1c/Hemoglobin.total 4.8 4.3-6.0 % Normal 12-14-2017 [facility] mass fraction (Bld) [place] (99281) Comment: Performed By: #### L200.0000 0 ####[facility] [place], [place] [address]DJ# [phone] PACIFIC COMMUNITIES [facility] IXZLTYNGAW8404 [place], [place] [address]Ut# [phone]#### L550.61567 ####[facility] LAB JHGIFJC7509 [place], [place] [address]Fd# [phone] hepatitis c ab on 2 HCV AB NONREACTIVE NONREACTIVE Normal 12-14-2017 [facility] (05000) Comment: Result Comment: SCREENING TE ST NEGATIVENONREACTIVE HCV ANTIBODY SCREEN IS CONSISTENT WITH NO HCVINFECT ION, UNLESS RECENT INFECTION IS SUSPECTED OR OTHEREVIDENCE EXISTS TO RENATO HAZEL HCV INFECTION Performed By: #### L200.0000 0 ####[facility] [place] [address].[place], [place] [address]GL# [phone] PACIFIC COMMUNITIES [facility] TZMCLQKPSE8606 [place], [place] [address]Wd# [phone]#### L550.77921 ####[facility] LAB TOTMHCI8002 [place], [place] [address]Nr# [phone] hep b core igm on 2 HEP B CORE IGM NONREACTIVE NONREACTIVE Normal 12-14-2017 [facility] (00 000) Comment: Result Comment: RESULTS WERE OBTAINED WITH THE [employer]VIA CENTAUR XP ANTI-HBC IGMEIA. VALUES OBTAINED WITH DIFFERENT MANUFACTURERS' ASSAYMETHODS MAY NOT BE USED INTERCHANGEABLY. Performed By: #### L200.0000 0 ####[facility] [place] [address].[place], [place] [address]XG# [phone] PACIFIC COMMUNITIES [facility]ITAL RWZKIGQJFV[address] [place] [address]Ti# [phone]#### L550.45777 ####[facility] LAB GPCTNJA8616 [place], [place] [address]Ny# [phone] hep a igm ab on 201 05-20-26 HEP A IGM AB NONREACTIVE NONREACTIVE Normal 12-14-2017 [facility] (60019) Comment: Result Comment: RESULTS WERE OBTAINED WITH THE ADVIA CENTAUR XP HEPATITIS AIgM. VALUES OBTAINED WITH D IFFERENT MANUFACTURERS' ASSAYMETHODS MAY NOT BE USED INTERCHANGEABLY. Performed By: #### L500.0140 0, L500.97249, L500.33397, L500.92405, L500.03851, L500.49800, L540 .07335, L540.89945, L540.98366, L540.62279, L550.94387 ####[facility] DTYIGSHIWW9337 [place], [place] [address]Ua# [phone] hbsag on 2017-12-14 BSA (Body Surface NONREACTIVE NONREACTIVE Normal 12-14-[address] [place] [address] Area) [place] (00 000) Comment: Result Comment: RESULTS WERE OBTAINED WITH THE Fifth Generation SystemsAUR XP.VALUES OBTAINED WITH DIFFERENT MANUFACTURERS ' ASSAY METHODSMAY NOT BE USED INTERCHANGEABLY. Performed By: #### L500.0140 0, L500.54300, L500.29511, L500.07691, L500.69403, L500.08310, L540 .09566, L540.67875, L540.39080, L540.85866, L550.59052 ####[facility] DJZYJHGABX1273 [place], [place] [address]Fz# [phone] gfr est on IF AMER Greater than 60 Normal 12-14-[address] [place] [address] ([address]) Comment: Performed By: #### L500.0140 0, L500.40631, L500.68541, L500.88515, L500.54838, L500.48872, L540 .06042, L540.23368, L540.49962, L540.21263, L550.56216 ####[facility] BNGRUXUMYG7995 [place], [place] [address]Rq# [phone] IF non-AFR AMER Greater than 60 Normal 12-14-[address] [place] [address] ([address]53) Comment: Performed By: #### L500.0140 0, L500.97165, L500.16175, L500.68978, L500.28126, L500.88287, L540 .64744, L540.76611, L540.20418, L540.31688, L550.32871 ####[facility] PBHTKYDYZF9250 [place], [place] [address]Tn# [phone] cmp on 2017-12-14 Alanine aminotransferase (ALT) 51 13-61 IU/L Normal 12-14-2017 [facility] (00 000) Comment: Result Comment: RESULTS MAY BE FALSELY DEPRESSED AFTER THE ADMINISTRATION OFSULFASALAZINE AND/OR SULFA PYRIDINE. Performed By: #### L500.0140 0, L500.00129, L500.90551, L500.47627, L500.30265, L500.30343, L540 .57804, L540.06411, L540.11877, L540.50003, L550.39614 ####[facility] GECTDSBXQU4300 [place], [place] [address]Jq# [phone] Albumin 4.5 3.2-5.0 GM/DL Normal 12-14-2017 [facility] (80461) Comment: Performed By: #### L500.0140 0, L500.34401, L500.68712, L500.36236, L500.03264, L500.92676, L540 .71824, L540.22229, L540.86421, L540.41432, L550.26818 ####[facility] RXOUNHJESA5097 [place], [place] [address]Ub# [phone] Albumin/Globulin Ratio 1.3 0.8-2.0 {ratio} Normal 018 [facility] (00 000) Comment: Performed By: #### L500.0140 0, L500.78781, L500.83073, L500.53574, L500.28039, L500.87677, L540 .75110, L540.68818, L540.50201, L540.01736, L550.79286 ####[facility] PJKKYWVCBD5915 [place], [place] [address]Xm# [phone] ALK PHOS 82 45-117 U/L Normal 12-14-2017 [facility] (04789) Comment: Performed By: #### L500.0140 0, L500.20443, L500.98838, L500.54929, L500.33590, L500.19086, L540 .46226, L540.03784, L540.81198, L540.74443, L550.39136 ####[facility] XVJDXMLRNN1279 [place], [place] [address]Py# [phone] Anion gap 10 5-16 MMOL/L Normal 12-14-2017 [facility] (31780) Comment: Performed By: #### L500.0140 0, L500.38280, L500.11261, L500.04629, L500.74198, L500.40259, L540 .75177, L540.34590, L540.03728, L540.13165, L550.43634 ####[facility] CCRLGXUFKK4939 [place], [place] [address]Dt# [phone] BILI TOTAL 0.8 0.2-1.0 MG/DL Normal 12-14-2017 [facility] (04724) Comment: Performed By: #### L500.0140 0, L500.75403, L500.57608, L500.36758, L500.54965, L500.55978, L540 .26077, L540.12060, L540.82732, L540.85250, L550.22375 ####[facility] XXFXHJYUDU4365 [place], [place] [address]Br# [phone] BUN/Creatinine Ratio 14 15-24 mg/mg Low [facility] (63986) Comment: Performed By: #### L500.0140 0, L500.23231, L500.64328, L500.94756, L500.53705, L500.83149, L540 .76173, L540.12471, L540.22679, L540.38175, L550.22571 ####[facility] OLFGUWLYQJ6461 [place], [place] [address]Tc# [phone] Calcium 9.0 8.5-10.1 MG/DL Normal 12-14-2017 [facility] (05271) Comment: Performed By: #### L500.0140 0, L500.94136, L500.75728, L500.01412, L500.80133, L500.78450, L540 .93461, L540.49670, L540.43024, L540.76837, L550.22532 ####[facility] IKIVMCWNWJ7020 [place], [place] [address]Gm# [phone] Chloride 102 98-107 MMOL/L Normal 12-14-2017 [facility] [place] (90809) Comment: Performed By: #### L500.0140 0, L500.56086, L500.67602, L500.28489, L500.54676, L500.91079, L540 .59869, L540.32803, L540.93158, L540.12272, L550.63390 ####[facility] ZUQTGFSQWV6313 [place], [place] [address]Ik# [phone] CO2 27 21-32 MMOL/L Normal 12-14-2017 [facility] [place] (59133) Comment: Performed By: #### L500.0140 0, L500.91479, L500.21402, L500.63288, L500.98373, L500.33852, L540 .52848, L540.12710, L540.69905, L540.66762, L550.63599 ####[facility] PWBAFXGWOC7201 [place], [place] [address]Kc# [phone] Creatinine 0.950 0.670-1.170 MG/DL Normal 12-14-2017 [facility] (63212) Comment: Result Comment: Patients rec eiving either N-Acetylcysteine (NAC) orMetamizole prior to venipu ncture, may have falsely depressedresults. Performed By: #### L500.0140 0, L500.25969, L500.10469, L500.89055, L500.19522, L500.63411, L540 .43088, L540.44921, L540.23943, L540.38462, L550.89033 ####[facility] THPRQDFHYL3804 [place], [place] [address]Dk# [phone] Globulin 3.5 2.2-4.2 GM/DL Normal 12-14-2017 [facility] (73579) Comment: Performed By: #### L500.0140 0, L500.82442, L500.15398, L500.14111, L500.21496, L500.19372, L540 .71485, L540.52120, L540.69703, L540.53197, L550.42577 ####[facility] MRYXHKFIGI4106 [place], [place] [address]Po# [phone] Glucose mass conc 90 70-100 MG/DL Normal 12-14-2017 [facility] (16552) Comment: Result Comment: 70-100- Norm al Fasting; 100-125 Impaired Fasting; greaterthan 126 on more than one result- Diabetes. ADA guidelines.Results may be falsely elevated afte r the administration ofSulfapyridine.Results may be falsely depressed after t he administration ofSulfasalazine. Performed By: #### L500.0140 0, L500.74716, L500.56486, L500.27374, L500.58130, L500.74960, L540 .82458, L540.03531, L540.10527, L540.85841, L550.33572 ####[facility] LZKPFRVDME4014 [place], [place] [address]Ia# [phone] Potassium molar conc 4.3 3.5-5.1 MMOL/L Normal [address] [place] [address] ([address]) Comment: Performed By: #### L500.0140 0, L500.73865, L500.76010, L500.87748, L500.36088, L500.99515, L540 .64202, L540.89598, L540.45050, L540.97285, L550.48986 ####[facility] OYHSTZEKXV8093 [place], [place] [address]Ye# [phone] Protein 8.0 6.0-8.5 GM/DL Normal 12-14-2017 [facility] (95053) Comment: Performed By: #### L500.0140 0, L500.46753, L500.54830, L500.73957, L500.26066, L500.02844, L540 .99543, L540.01775, L540.19723, L540.81303, L550.14919 ####[facility] LEUXUIQDRY9196 [place], [place] [address]Jt# [phone] SGOT (AST) 34 8-34 U/L Normal 12-14-2017 [facility] (64480) Comment: Result Comment: RESULTS MAY BE FALSELY DEPRESSED AFTER THE ADMINISTRATION OFSULFASALAZINE AND/OR SULFA PYRIDINE. Performed By: #### L500.0140 0, L500.14438, L500.05310, L500.10788, L500.44264, L500.20301, L540 .57456, L540.36829, L540.34030, L540.49777, L550.87488 ####[facility] HOJLBPYUEX0225 [place], [place] [address]Fb# [phone] Sodium 139 136-145 MMOL/L Normal 12-14-2017 [facility] (36349) Comment: Performed By: #### L500.0140 0, L500.30163, L500.62758, L500.52848, L500.68520, L500.51594, L540 .10206, L540.05750, L540.97270, L540.74166, L550.26794 ####[facility] IHFUNGNULL8280 [place], [place] [address]Pt# [phone] Urea nitrogen 13 7-26 MG/DL Normal 12-14-2017 [facility] (12407) Comment: Performed By: #### L500.0140 0, L500.06959, L500.45737, L500.75282, L500.29887, L500.76928, L540 .95636, L540.63314, L540.77065, L540.33878, L550.86546 ####[facility] XKNBPWZMAI0244 [place], [place] [address]Zx# [phone] cbc on 2017-12-14 Erythrocytes (RBC) 0.0 Less than 1 % Normal 201 8 [facility] [place] (29053) Comment: Performed By: #### L200.0000 0 ####[address] [address]TV# [phone] PACIFIC COMMUNITIES HOSPITAL NSBOWHZGNV7[address] [place] [address]Nj# [phone]#### L550.82466 ####[facility] LAB DWOITPM[address] [place] [address]Bm# [phone] Platelet mean volume (PMV) 9.4 9.4-12.4 fL Normal [facility] (00 000) Comment: Performed By: #### L200.0000 0 ####[address], [place] [address]TA# [phone] PACIFIC COMMUNITIES [facility]OSPITAL QOMTNWLTBX8971 [place], [place] [address]Nj# [phone]#### L550.79611 ####[facility] LAB WDEDSUY9[address] [place] [address]En# [phone] Erythrocyte distribution 12.1 11-14.5 % Normal 12-14 [facility] width Auto Ratio (RBC) [place] (78067) Comment: Performed By: #### L200.0000 0 ####[address], [place] [address]VI# [phone] PACIFIC COMMUNITIES HOSPITAL FPYKCCKBOX4310 [place], [place] [address]Rn# [phone]#### L550.57963 ####[facility] EEXJBTM6499 [place], [place] [address]Dd# [phone] Erythrocytes (RBC) 5.33 4.50-6.00 M/CU MM Normal 12-14-2017 [facility] (00 000) Comment: Performed By: #### L200.0000 0 ####[address], [place] [address]RG# [phone] [place] [address] DJVVBGIJML6355 [place], [place] [address]Fg# [phone]#### L550.48684 ####[facility] KHIFKQW[address] [place] [address]Zi# [phone] Hematocrit (HCT) 45.8 41.0-53.0 % Normal 12-14-2017 [facility] (38698) Comment: Performed By: #### L200.0000 0 ####[address], [place] [address]OU# [phone] PACIFIC COMMUNITIES HOSPITAL QPMUNSSKPW1242 [place], [place] [address]Ra# [phone]#### L550.79418 ####[facility] QTCAQFH[address] [place] [address]Vq# [phone] Hemoglobin mass conc 15.4 13.5-17.5 GM/DL Normal 8 [facility] (d) [place] (00 000) Comment: Performed By: #### L200.0000 0 ####[address], [place] [address]FI# [phone] PACIFIC COMMUNITIES HOSPITAL LBNGSJMBYZ[address] [place] [address]Yc# [phone]#### L550.19595 ####[facility] PGHSPQI4[address] [place] [address]Gn# [phone] MCHC mass conc (RBC) 33.6 32.0-36.0 GM/DL Normal 8 [facility] (00 000) Comment: Performed By: #### L200.0000 0 ####[address], [place] [address]KI# [phone] PACIFIC COMMUNITIES HOSPITAL YRFCCLLHDH5933 [place], [place] [address]Hw# [phone]#### L550.35288 ####[facility] ZAOCCUA2[address] [place] [address]Wu# [phone] MCV 85.9 80.0-99.0 fl Normal 12-14-2017 [facility] (74369) Comment: Performed By: #### L200.0000 0 ####[address], [place] [address]GS# [phone] PACIFIC COMMUNITIES HOSPITAL CEGVXPOHAP6268 [place], [place] [address]Tb# [phone]#### L550.84388 ####[facility] PQVLOMX9474 [place], [place] [address]Zy# [phone] Platelets 262 150-450 K/CU MM Normal 12-14-2017 [facility] (57462) Comment: Performed By: #### L200.0000 0 ####[address], [place] [address]US# [phone] PACIFIC COMMUNITIES HOSPITAL YWICSLCKWA7468 [place], [place] [address]Yv# [phone]#### L550.00974 ####[facility] QPXXAMA8346[address] [place] [address]Gl# [phone] WBC (Leukocytes) 7.2 4.5-11.0 K/CU MM Normal 12-14-2017 [facility] (15638) Comment: Performed By: #### L200.0000 0 ####[address], [place] [address]MV# [phone] PACIFIC COMMUNITIES HOSPITAL XBVFDPTGPK0820 [place], [place] [address]Dw# [phone]#### L550.96576 ####[facility] UJZABIR4589 [place], [place] [address]Ll# [phone] b12 on 2017-12-14 Cobalamins (Vitamin B12) 385.0 193-986 PG/ML Normal 12-14 [facility] (00 000) Comment: Performed By: #### L500.0140 0, L500.64698, L500.36039, L500.93463, L500.58366, L500.58193, L540 .87986, L540.17902, L540.53907, L540.22835, L550.63233 ####[facility] MGGMWECDVA2025 [place], [place] [address]Rx# [phone] xr chest 2 views on 2017-11-17 XR CHEST 2 VIEWS ORIGINALXR CHEST 2 VIEWS Normal 11-17-2017 [facility] CLINICAL STATEMENT: CHEST [facility] ([place]) PAIN. Patient reports (59755) left-sided chest pain and shortness of breath for one day with one pack per day smoking history. COMPARISON: None FINDINGS: The cardiomediastinal contours are normal. The lungs are mildly hyperinflated and there is flattening of the hemidiaphragms, compatible with emphysematous change. The perihilar markings are mildly increased bilaterally. Mild bronchial cuffing is also seen. Blunting of the bilateral costophrenic angles could be due to trace fluid or chronic pleural thickening. No focal airspace disease, vascular congestion, or pneumothorax. No acute osseous or soft tissue abnormality. IMPRESSION: No evidence of lobar pneumonia. Increased perihilar markings and mild bronchial wall thickening can be seen in acute viral/atypical process such as bronchitis. I have personally reviewed the images of this examination and agree with the resident's findings and interpretation. Interpreted By: Catrachito Rodriguezreliminary Report By: Licha Onofre DOElectronically Signed By: Catrachito Rodriguez MD Dictated Date: 11/17/2017 5:32:02 PM Prelim Date: 11/17/2017 5:35:54 PM Sign Date: 11/17/2017 6:47:11 PM tropi on 2017-11-17 Troponin I.cardiac <0.015 0.000-0.040 ng/mL Normal 8 [facility] ([place]) (69988) Comment: Result Comment: Troponin I r eference ranges (06/26/14): 0.00-0.040 ng/mL Negative and non-diagnostic. >0.040 ng/mL Consistent with cardiac damage, increased clinical risk and possibility of myocardial infarction. Serial measurements, a rise & fall in test results, clinical history, appropriate symptoms and/or ECG changes may help assess possibility of IN. *Other non-acute coronary syndrome conditions such as CHF, myocarditis, pulmonary emboli, sepsis and cardiac s urgery could result in myocardial damage and increased troponin levels. Performed By: #### LUCIANO MONTES AMRIAH ####[place] [address] [place] [address] dimer on 2017-11-17 Fibrin D-dimer FEU IA <200 0-230 ug/mL Normal 11-17-19 18 [facility] (B[facility] ([place]) (43927) Comment: Result Comment: Results repo rted in D-DU ng/ml. Negative for D-dimer. DVT/PE is highly unlikely.Note: Fal se negative results may be seen in patients on anticoagulant therapy.The re sult of the D-Dimer test should be evaluated in the context of all the clini janet and laboratory data available.In those instances where the laborato ry result does not agree with the clinical evaluation, additional tests shouldbe performed accordingly. Performed By: #### TROPI DI MARIAH ####[place] [address] [place] [address] office visit: uc: l shoulder pain, l 1st mcp fx, unexplained weight loss on 2017-05-06 Protein mass conc Done 05-06-2017 - [facility] 05-06-2017 (83167) Protein mass conc T 05-06-2017 - [facility] 05-06-2017 (35636) Tobacco smoking Current every day 2016 - [facility] status NHIS smoker 05-06-2017 (03864) Vital Signs Vital Sign Description Value / Unit Date Location The following section is limited to 5 en tries per type and includes entries from the following time range: 20170506 - [id number] 9. BMI (Body Mass Index) 23.18 kg/m2 05-06-2017 - 05-06-2017 [facility] (05145) Body Temperature 98.9 [degF] 05-06-2017 - 05-06-2017 [facility] (18713) BP Diastolic 72 mm[Hg] 05-06-2017 - 05-06-2017 [facility] (93734) BP Systolic 106 mm[Hg] 05-06-2017 - 05-06-2017 [facility] (52326) Height 170.18 cm 05-06-2017 - 05-06-2017 [facility] (98752) Pulse (Heart Rate) 78 /min 05-06-2017 - 05-06-2017 [facility] (20868) Respiratory Rate 16 /min 05-06-2017 - 05-06-2017 [facility] Now [facility] (41304) Weight 67.13 kg 05-06-2017 - 05-06-2017 [facility] (59189) Encounters Date Type Reason Provider Location 12-14-2017 Ambulatory Z79.899,E55.9 Milliboaz Singhk Facility:[facility] 08-05-2019 - Emergency department CARISA dalton 08-05-2019 patient visit [facility] MD KLEIN (48994) CARISA CHAHAL [facility]GARY 10-04-2018 - Emergency department NONE PHYSICIAN BENITA Facility:A 10-05-2018 patient visit Jose De Jesus HERNANDEZ [facility] 12-26-2017 - Emergency department NONE PHYSICIAN Gary englandy:A 12-26-2017 patient visit MATTHEW SAWANT 11-17-2017 - Emergency department NONE PHYSICIAN JORDAN Facility:A 11-17-2017 patient visit Sushila HERRON PHYSICIAN Plan of Treatment Plan Description Date Location Appointment Appointment 05-11-2017 - 05-11-2017 [facility] ([id number]) X-Ray, Hand X-Ray, Hand 05-06-2017 - 05-06-2017 [facility] ([id number]) X-Ray, Wrist X-Ray, Wrist 05-06-2017 - 05-06-2017 [facility] ([id number]) Payers Payer Name Policy Number Location [facility] [id number] [facility] ([id number]) PRIVATE PAY [facility] ([id number]) [id number] [facility] [place] ([id number]) [id number] [facility] [place] ([address]607) [id number] [facility] [place] ([id number]) [id number] [facility] ([id number]) Summary Purpose Family History No Family History Records FoundNo Family History Records FoundNo Family History Records Found Advance Directives No Advanced Directives Records FoundNo Advanced Directives Records FoundNo Advanced Directives Records Found Additional Source Comments FOR RECORDS PERTAINING TO PATIENTS WHO ARE OR HAVE BEEN ENROLLED IN A CHEMICAL DEPENDENCY/SUBSTANCE ABUSE PROGRAM, SOME INFORMATION MAY BE OMITTED. This clinical summary was aggregated from multiple sources. Caution should be exercised in using it in the provision of clinical care. This summary normalizes information from multiple sources, and as a consequence, information in this document may materially changethe coding, format and clinical context of patient data. In addition, data may be omittedin some cases. CLINICAL DECISIONS SHOULD BE BASED ON THE PRIMARY CLINICAL RECORDS. [facility] provides no warranty or guarantee of the accuracy or completeness of information in this document. UNRECOGNIZED CONTENT PROVIDED BELOW FOR UNRECOGNIZED SECTION No Status Records FoundNo Status Records FoundNo Status Records Found UNRECOGNIZED CONTENT PROVIDED BELOW FOR UNRECOGNIZED SECTION INFORMATION SOURCE DATE CREATED AUTHOR AUTHOR'S ORGANIZATIO N 04/09/2018 [facility] DATE CREATED AUTHOR AUTHOR'S ORGANIZATIO N 10/07/2018 [facility] [place] DATE CREATED AUTHOR AUTHOR'S ORGANIZATIO N 08/13/2019 [facility]
--- OUTSIDE RECORDS SUMMARY | 2020-07-31 10:12 | XMS RPT_ITS | CCD ---
:1985 External Reference #:[id number] Author Organization [facility] Care Team Providers Name Role Phone LO Garza Unavailable Unavailable PHYSICIAN Unavailable Unavailable Sushila TERRELL Unavailable Unavailable PHYSICIAN Unavailable Unavailable PHYSICIAN Unavailable Unavailable Panda LEON Unavailable Unavailable BREJUSTIN, IGrover Unavailable Unavailable PHYSICIAN Unavailable Unavailable Jose De Jesus SHRESTHA Unavailable Unavailable [facility] Unavailable Unavailable Otilio Ledesma Unavailable MD LATISHA Admitting Unavailable MD LATISHA Attending Unavailable MD LATISHA Primary Care Unavailable Problems Active Problems Category Problem Name Status Date Location Unclassified Unknown / UNK(Unknown) Active 12-14-2017 - [facility] [place] ([address]696) Past or Other Problems Category Problem Name Status Date Location Fracture of upper limb Other displaced Completed 05-06-2017 [facility] fracture of base of (18585) first metacarpal bone, left hand, initial encounter for closed fracture Other connective tissue Hand pain Completed 05-06-2017 [facility] disease (08164) Other non-traumatic Pain in wrist Completed 05-06-2017 [facility] joint disorders (66540) Other non-traumatic Pain in left shoulder Completed 05-06-2017 [facility] joint disorders (22566) Other nutritional; Unexplained weight Completed 05-06-2017 [facility] endocrine; and loss (57698) metabolic disorders Unclassified Z79.899,E55.9 12-14-2017 [facility] [place] (41300) Results Result Name Value Range Unit Interpretation Flag Date Location emergency report on 2019-08-12 EMERGENCY REPORT [facility] Normal 08-12 [facility] EMERGENCY ROOM REPORT Hospital (02461) NAME ACCOUNT SEX AGE ADMIT DISCHARGE PT MED. RECORD# NUMBER DATE DATE TYPE DANICA ISRAEL [id number] M 34 08/05/19 08/05/19 3 W [id number] ROOM: ER DATE OF : 1985 DICTATING [...] pain. PHYSICAL EXAMINATION: This i s a aps-mkp-[id number] male resting comfortably in bed. HEENT: The [...] 1985 anywhere. I am stuck here in [place], and I have no way of feeding [...] with the patient that I would contact [employer] to [facility]. The patient is agreeable with this plan. Since Social Serv ices is not available at this time, a message was left with [employer] to come and see the patient once they get he re. The patient was signed out t o Dr. Ibrahim for disposition pending [employer] consultation and urinalysis results. Dictated By: Carisa Klein MD 08/05/19 07:01 JOB #: [id number] Transcribed By: tamara 08/06/19 08:09 Electronically signed by: Latisha Younger MD 08/12/19 20:03 Page 2 of 2 DANICA ISRAEL Emergency Room Report wet prep trichomonas on 2019-08-05 WET PREP TRICHOMONAS WET PREP TRICHOMONAS Normal 08-05-2019 [facility] WET [facility] WET PREP: (07889) No Trich. seen Comment: Performed By: #### [id number] ## ## [facility],[address] [place] [address] urinalysis with microscopy on 2019-08-05 Amorphous NONE Normal 08-05-2019 [facility] (51184) Comment: Performed By: #### [id number] ## ## [facility],[address] [place] [address] 21749 Bacteria LM.HPF (Urine sed) NONE Normal [facility] [#/Area] [facility] ( 43646) Comment: Performed By: #### [id number] ## ## [facility],[address] [place] [address] 94067 Bilirubin [Mass/Vol] NEG NORMAL: NEGATIVE mg/dL Normal [facility] (88773) Comment: Performed By: #### [id number] ## ## [facility],[address] [place] [address] 63836 Blood NEG NORMAL: NEGATIVE Normal 08-05-2019 [facility] (83920) Comment: Performed By: #### [id number] ## ## [facility],[address] [place] [address] 31330 Casts LM.LPF (Urine sed) NONE Normal 08-05 [facility] [#/Area] [facility] ( 28130) Comment: Performed By: #### [id number] ## ## [facility],[address] [place] [address] 77408 Clarity (U) clear NORMAL: CLEAR Normal 08-05-2019 [facility] (52004) Comment: Performed By: #### [id number] ## ## [facility],[address] [place] [address] 50729 Color (U) p.yel NORMAL: YELLOW Normal 08-05-2019 [facility] (14010) Comment: Performed By: #### [id number] ## ## [facility],[address] [place] [address] 23055 Crystals LM Nom (Urine sed) NONE Normal [facility] ( 43206) Comment: Performed By: #### [id number] ## ## [facility] darrian,[address] [place] [address] 67817 Epi Cells NONE Normal 08-05-2019 [facility] (74102) Comment: Performed By: #### [id number] ## ## [facility] darrian,[address] [facility] [address] Glucose [Mass/Vol] NORM NORMAL: NORMAL Normal 2018 [facility] ( 00941) Comment: Performed By: #### [id number] ## ## [facility] darrian,[address] [place] [address] 42546 Ketone NEG NORMAL: NEGATIVE Normal 08-05-2019 [facility] (67511) Comment: Performed By: #### [id number] ## ## [facility],[address] [place] [address] 10716 Mucous NONE Normal 08-05-2019 [facility] (76875) Comment: Performed By: #### [id number] ## ## [facility],[address] [place] [address] 27287 Nitrite Ql (U) NEG NORMAL: NEGATIVE Normal 08-05-20 [facility] ( 60822) Comment: Performed By: #### [id number] ## ## [facility],[address] [place] [address] 98262 pH (Bld) 6 NORMAL: 5.0-8.0 Normal 08-05-2019 [facility] (12671) Comment: Performed By: #### [id number] ## ## [facility],[address] [place] [address] 72458 Protein (U) NEG NORMAL: NEGATIVE mg/dL Normal 08-05-2019 [facility] [Mass/Vol] [facility] (09861) Comment: Performed By: #### [id number] ## ## [facility] darrian,[address] [place] [address] Rbc NONE 0-3 / hpf Normal 08-05-2019 [facility] (85392) Comment: Performed By: #### [id number] ## ## [facility],[address] [place] [address] Sp Gray 1.010 NORMAL: 1.010-1.030 Normal 9 [facility] ( 10953) Comment: Performed By: #### [id number] ## ## [facility],[address] [place] [address] Specimen type Nom (Spec) Void Normal 08-05 [facility] (53597) Comment: Performed By: #### [id number] ## ## [facility],[address] [place], [place] [address] URINALYSIS WITH MICROSCOPY Normal [facility] (33640) Comment: Result Comment: URINALYSIS Performed By: #### [id number] ## ## [facility],[address] [place] [address] Urobilinog NORM NORMAL: NORMAL Normal 08-05-2019 [facility] (03207) Comment: Performed By: #### [id number] ## ## [facility],[address] [place], [place] [address] Wbc NONE 0-5 / hpf Normal 08-05-2019 [facility] (83414) Comment: Performed By: #### [id number] ## ## [facility],[address] [place] [address] 26438 WBC (Bld) [#/Vol] NEG NORMAL: NEGATIVE 10*3/uL Normal 08-05 [facility] (90725) Comment: Result Comment: URINE MICROS COPIC Performed By: #### [id number] ## ## [facility],[address] [place] [address] 84853 Yeast LM Ql (Urine sed) NONE Normal 2018 [facility] (46678) Comment: Performed By: #### [id number] ## ## [facility],[address] [facility] [address] tropi on 2018-10-05 Troponin I.cardiac <0.015 0.000-0.040 ng/mL Normal 10-05- 8 [facility] ([place]) (32191) Comment: Result Comment: Troponin I r eference ranges (06/26/14): 0.00-0.040 ng/mL Negative and non-diagnostic. >0.040 ng/mL Consistent with cardiac damage, increased clinical risk and possibility of myocardial infarction. Serial measurements, a rise & fall in test results, clinical history, appropriate symptoms and/or ECG changes may help assess possibility of GA. *Other non-acute coronary syndrome conditions such as CHF, myocarditis, pulmonary emboli, sepsis and cardiac s urgery could result in myocardial damage and increased troponin levels. Performed By: #### TROPI ### [address] [address] erds on 2018-10-04 Acetaminophen [facility] conc <2.0 10.0-30.0 Low 2017 [facility] ([place]) (0000 0) Comment: Performed By: #### ADIFF, ER DS, CMP, GFR, CBC, ANEU ####[address] [address] ER Drug Screen (s) Negative Normal 10-04-2018 [facility] ([place]) (02834) Comment: Performed By: #### ADIFF, ER DS, CMP, GFR, CBC, ANEU ####[address] 44 683 ER Drug Screen Serum shows no Invalid Interpretati on 10-04-2018 [facility] evidence of drugs Code Fo undation ([place]) routinely (68870) screened Comment: Performed By: #### ADIFF, ER DS, CMP, GFR, CBC, ANEU ####[address] 44 951 ER Serum Drugs Screened: See Below Normal 10-04 [facility] ([place]) (0000 0) Comment: Result Comment: This drug sc reen is a presumptive screening only. No confirmation will be perform ed unless requested.Drugs included in the ER serum drug screen are: Thres holdEthanol 10.0 mg/dLSalicylate 2.0 mg/dLAcetaminophen 2.0 mcg/m LTricyclic Antidepressants 300 ng/mLTesting has been performed FOR MEDICAL P URPOSES ONLY. Performed By: #### ADIFF, ER DS, CMP, GFR, CBC, ANEU ####[place] [address] Ethanol Level <10.0 Normal 10-04-2018 [facility] ([place]) (81927) Comment: Performed By: #### ADIFF, ER DS, CMP, GFR, CBC, ANEU ####[place] [address] 980 Salicylate Lvl (ds) <2.0 10.0-25.0 Low 10-04-2018 [facility] ([place]) (82420) Comment: Performed By: #### ADIFF, ER DS, CMP, GFR, CBC, ANEU ####[place] [address] TCA (s) NEG Normal 10-04-2018 [facility] ([place]) (29568) Comment: Performed By: #### ADIFF, ER DS, CMP, GFR, CBC, ANEU ####[place] [address] 193 cmp on 2018-10-04 Albumin/Globulin mass ratio 1.3 0.9-1.6 ratio Normal [facility] ([place]) (93329) Comment: Performed By: #### ADIFF, ER DS, CMP, GFR, CBC, ANEU ####[place] [address] 589 ALP enzyme act/vol 96 38-126 U/L Normal 10-04-2018 [facility] ([place]) (42498) Comment: Performed By: #### ADIFF, ER DS, CMP, GFR, CBC, ANEU ####[place] [address] 044 Bili Total 1.4 0.2-1.2 mg/dL High 10-04-2018 [facility] ([place]) (59734) Comment: Performed By: #### ADIFF, ER DS, CMP, GFR, CBC, ANEU ####[place] [id number] [address] [place] [address] 44 710 Creatinine mass conc 1.10 0.60-1.40 mg/dL Normal 8 [facility] ([place]) (0000 0) Comment: Performed By: #### ADIFF, ER DS, CMP, GFR, CBC, ANEU ####[address] 44 710 Globulin Calculated mass 3.9 1.5-3.8 G/dL High 10-04 [facility] conc (S) ([place]) (0000 0) Comment: Performed By: #### ADIFF, ER DS, CMP, GFR, CBC, ANEU ####[address] 44 710 Protein mass conc 9.0 6.0-8.5 G/dL High 10-04-2018 [facility] ([place]) (70175) Comment: Performed By: #### ADIFF, ER DS, CMP, GFR, CBC, ANEU ####[place] [address] Urea nitrogen/Creatinine 14.5 10.0-22.0 ratio Normal 10-04 [facility] ([place]) (78038) Comment: Performed By: #### ADIFF, ER DS, CMP, GFR, CBC, ANEU ####[address] 44 710 Albumin mass conc 5.1 3.2-4.8 G/dL High 10-04-2018 [facility] ([place]) (56793) Comment: Performed By: #### ADIFF, ER DS, CMP, GFR, CBC, ANEU ####[address] 44 710 ALT enzyme act/vol 37 12-55 U/L Normal 10-04-2018 [facility] ([place]) (90144) Comment: Performed By: #### ADIFF, ER DS, CMP, GFR, CBC, ANEU ####[address] 44 710 AST enzyme act/vol 30 8-34 U/L Normal 10-04-2018 [facility] ([place]) (39202) Comment: Performed By: #### ADIFF, ER DS, CMP, GFR, CBC, ANEU ####[place] [address] Calcium mass conc 9.5 8.4-10.1 mg/dL Normal 10-04-2018 [facility] ([place]) (34585) Comment: Performed By: #### ADIFF, ER DS, CMP, GFR, CBC, ANEU ####[place] [address] Chloride molar conc 100 98-110 mEq/L Normal 10-04-2018 [facility] ([place]) (56410) Comment: Performed By: #### ADIFF, ER DS, CMP, GFR, CBC, ANEU ####[place] [address] CO2 molar conc 26 22-32 mEq/L Normal 10-04-2018 [facility] ([place]) (88499) Comment: Performed By: #### ADIFF, ER DS, CMP, GFR, CBC, ANEU ####[place] [address] Electrolyte Balance 9.0 4.0-15.0 mEq/L Normal 10-04-2018 [facility] ([place]) (0000 0) Comment: Performed By: #### ADIFF, ER DS, CMP, GFR, CBC, ANEU ####[place] [address] 710 Glucose mass conc 90 70-110 mg/dL Normal 10-04-2018 [facility] ([place]) (97515) Comment: Performed By: #### ADIFF, ER DS, CMP, GFR, CBC, ANEU ####[place] [address] Potassium molar conc 4.6 3.5-5.0 mEq/L Normal 8 [facility] ([place]) (0000 0) Comment: Performed By: #### ADIFF, ER DS, CMP, GFR, CBC, ANEU ####[place] [address] Sodium molar conc 135 136-145 mEq/L Low 10-04-2018 [facility] ([place]) (66719) Comment: Performed By: #### ADIFF, ER DS, CMP, GFR, CBC, ANEU ####[place] [address] Urea nitrogen mass conc 16.0 8.0-22.0 mg/dL Normal 2017 [facility] ([place]) (52273) Comment: Performed By: #### ADIFF, ER DS, CMP, GFR, CBC, ANEU ####[place] [address] 710 cbc on 2018-10-04 Erythrocyte distribution 15.1 11.5-15.5 % Normal 10-04 [facility] Auto Ratio (RBC) [facility] ([place]) (02068) Comment: Performed By: #### ADIFF, ER DS, CMP, GFR, CBC, ANEU ####[place] [address] Hematocrit Auto Volume 50.1 40.0-52.0 % Normal 018 [facility] Fraction (Bld) ([place]) (56147) Comment: Performed By: #### ADIFF, ER DS, CMP, GFR, CBC, ANEU ####[place] [address] Hemoglobin mass conc 16.7 13.0-17.5 G/dL Normal 8 [facility] (Bld) [facility] ([place]) (95894) Comment: Performed By: #### ADIFF, ER DS, CMP, GFR, CBC, ANEU ####[place] [address] MCH Auto Entitic mass 27.9 27.0-33.0 pg Normal 10-04-20 18 [facility] (RBC) ([place]) (0000 0) Comment: Performed By: #### ADIFF, ER DS, CMP, GFR, CBC, ANEU ####[place] [address] MCHC Auto mass conc 33.3 32.0-36.0 G/dL Normal 10-04-2018 [facility] (RBC) ([place]) (0000 0) Comment: Performed By: #### ADIFF, ER DS, CMP, GFR, CBC, ANEU ####[place] [address] MCV Auto Entitic volume 84.0 81.0-100.0 fL Normal 10-04 [facility] ([facility]) ([place]) (0000 0) Comment: Performed By: #### ADIFF, ER DS, CMP, GFR, CBC, ANEU ####[place] [address] Platelet mean volume Auto 7.1 6.4-10.5 fL Normal 09-18 [facility] Entitic volume (d) ([place]) (57096) Comment: Performed By: #### ADIFF, ER DS, CMP, GFR, CBC, ANEU ####[place] [address] Platelets Auto #/vol 287 150-450 10 3/mcL Normal 8 [facility] ([place]) (85936) Comment: Performed By: #### ADIFF, ER DS, CMP, GFR, CBC, ANEU ####[place] [address] RBC Auto #/vol 5.97 4.50-6.00 10 6/mcL Normal 10-04-2018 [facility] ([place]) (07374) Comment: Performed By: #### ADIFF, ER DS, CMP, GFR, CBC, ANEU ####[address] 44 [address] WBC Auto #/vol 15.20 4.50-10.80 10 3/mcL High 10-04-2018 [facility] ([facility] ([place]) (03547) Comment: Performed By: #### ADIFF, ER DS, CMP, GFR, CBC, ANEU ####[place] [address] .neuabs on Neutrophil, Absolute 11.10 2.25-8.10 10 3/mcL High 8 [facility] ([place]) (02889) Comment: Performed By: #### ADIFF, ER DS, CMP, GFR, CBC, ANEU ####[place] [address]70 [address] [place] [address] 44 790 .gfr on 2018-10-04 GFR Non- >60 Normal 10-04 [facility]) (10562) Comment: Result Comment: GFR Populati on mean [...] ADIFF, ER DS, CMP, GFR, CBC, ANEU ####[place] 3[address]70 [address] [place] [address] 44 804 GFR >60 Normal 8 [facility] ([place]) (92926) Comment: Result Comment: GFR Populati on mean [...] ADIFF, ER DS, CMP, GFR, CBC, ANEU ####[place] 3[address]70 [address] [place] [address] 44 970 .auto diff on 10-04 Ammonia mass conc 1.10 0.09-1.40 10 3/mcL Normal 10-04-2018 A [facility]) (46106) Comment: Performed By: #### ADIFF, ER DS, CMP, GFR, CBC, ANEU ####[address] 44 710 Basophils Auto #/vol 0.00 0.00-0.27 10 3/[facility] Normal 8 [facility]) (66985) Comment: Performed By: #### ADIFF, ER DS, CMP, GFR, CBC, ANEU ####[address] 44 710 Basophils/100 WBC Auto ([facility]) 0.3 0.0-2.5 % Normal 1 12-05-2017 [facility]) (0000 0) Comment: Performed By: #### ADIFF, ER DS, CMP, GFR, CBC, ANEU ####[address] 44 710 Eosinophils Auto #/vol 0.10 0.00-0.65 10 3/[facility] Normal 018 [facility] hospital) (21762) Comment: Performed By: #### ADIFF, ER DS, CMP, GFR, CBC, ANEU ####[address] 44 710 Eosinophils/100 WBC Auto 0.9 0.0-6.0 % Normal 10-04 [facility] hospital) (73860) Comment: Performed By: #### ADIFF, ER DS, CMP, GFR, CBC, ANEU ####[address] 44 710 Lymphocytes Auto #/vol 2.70 0.90-4.32 10 3/[facility] Normal [address] [place] [address] ([place]) (22704) Comment: Performed By: #### ADIFF, ER DS, CMP, GFR, CBC, ANEU ####[address] 44 710 Lymphocytes/100 WBC Auto 18.0 20.0-40.0 % Low 10-04 [facility] ([place]) (73983) Comment: Performed By: #### ADIFF, ER DS, CMP, GFR, CBC, ANEU ####[address] 44 710 Monocytes/100 WBC Auto (Bld) 7.5 2.0-13.0 % Normal 1 12-05-2017 [facility]) (01006) Comment: Performed By: #### ADIFF, ER DS, CMP, GFR, CBC, ANEU ####[address] 44 710 Neutrophils/100 WBC Auto 73.3 50.0-75.0 % Normal 10-04 [facility] ([facility]) [facility]) (50500) Comment: Performed By: #### ADIFF, ER DS, CMP, GFR, CBC, ANEU ####[address] 44 710 hiv 1/2 on HIV 1/O/2 QUAL NONREACTIVE NONREACTIVE Normal 12-15-2017 [facility] (00 000) Comment: Result Comment: NONREACTIVE: LESS THAN 1.0 INDEX VALUENONREACTIVE FOR ANTIBODIES TO HIV-1 AND HIV- 2 BY THE ADVIACENTAUR HIV 1/0/2 ENHANCED ASSAY Performed By: #### L200.0000 0 ####[address], [place] [address]US# [phone] [facility] [id number] [place], [place] [address]Ab# [phone]#### L550.74910 ####[facility] [id number] [place], [place] [address]Rl# [phone] [id number] on DJRL23-NIJBPUX 19.4 30.0-100.0 NG/ML Low 12-14-2017 [facility] (28059) Comment: Result Comment: Deficiency L ess than 20 ng/mLInsufficiency 20 - Less than 30 ng/mLSufficiency 30 - 100 ng /mL Performed By: #### L200.0000 0 ####[address], [place] [address]FI# [phone] MILWAUKIE HOSPITAL [id number] [place], [place] [address]Ke# [phone]#### L550.48241 ####[facility] [id number] [place], [place] [address]Nt# [phone] tsh on 2017-12-14 Thyroid stimulating 1.720 0.358-3.740 UIU/ML Normal 12-14-19 18 [facility] (TSH) [facility] (92262) Comment: Result Comment: 3rd generati on ultra sensitive TSH Performed By: #### L500.0140 0, L500.35426, L500.39578, L500.72808, L500.72405, L500.89027, L540 .55902, L540.87053, L540.69002, L540.83771, L550.21807 ####[facility] [id number] [place], [place] [address]Fa# [phone] t4 free on Thyroxine (T4) free 0.88 0.76-1.46 NG/DL Normal 12-14-2017 [facility] (00 000) Comment: Performed By: #### L500.0140 0, L500.09875, L500.49686, L500.86443, L500.54849, L500.34838, L540 .25950, L540.51494, L540.79242, L540.30317, L550.83767 ####[facility] [id number] [place], [place] [address]Pm# [phone] lipid on 2017-12-14 Cholesterol 166 0-199 MG/DL Normal 12-14-2017 [facility] (94070) Comment: Performed By: #### L500.0140 0, L500.65065, L500.00793, L500.10685, L500.18956, L500.85147, L540 .60181, L540.00508, L540.38147, L540.72762, L550.76682 ####[facility] [id number] [place], [place] [address]Va# [phone] HDL Cholesterol 53 GREATER [place] 40 MG/DL Normal 12-14-2017 [facility] (61745) Comment: Result Comment: Patients rec eiving Metamizole prior to venipuncture, mayhave falsely depressed results. Performed By: #### L500.0140 0, L500.38769, L500.17433, L500.62408, L500.59484, L500.85038, L540 .96559, L540.47420, L540.10311, L540.19601, L550.06029 ####[facility] [id number] [place], [place] [address]Gc# [phone] LDL Cholesterol 96 0-129 MG/DL Normal 12-14-2017 [facility] (89590) Comment: Result Comment: ___CHOLESTER OL/HDL RATIO RISK___ CHD RISK = Total CHOL LDL HDL (CHOL/HDL) Recommende d <200 <130 >35 <3.4 Borderline 200-239 130-159 3.4-4.99 High >240 >160 >5.0 Performed By: #### L500.0140 0, L500.28815, L500.60440, L500.43076, L500.75026, L500.58228, L540.87407, L540 .71997, L540.06736, L540.53102, L550.26276 ####[facility] [id number] 0 [place], [place] [address]Cy# [phone] Triglyceride 85 30-149 MG/DL Normal 12-14-2017 [facility] (34455) Comment: Result Comment: Patients rec eiving either N-Acetylcysteine (NAC) orMetamizole prior to venipu ncture, may have falsely depressedresults. Performed By: #### L500.0140 0, L500.36836, L500.59412, L500.11837, L500.16826, L500.59850, L540 .34578, L540.38859, L540.67674, L540.53854, L550.00503 ####[facility] [id number] [place], [place] [address]Wa# [phone] hgb a1c glycohb on 2017-12-14 Hemoglobin A1c/Hemoglobin.total 4.8 4.3-6.0 % Normal 12-14-2017 [facility] mass fraction (Bld) [place] (24157) Comment: Performed By: #### L200.0000 0 ####[facility] [place], [place] [address]EQ# [phone] MILWAUKIE HOSPITAL [id number] [place], [place] [address]Gm# [phone]#### L550.17056 ####[facility] [id number] [place], [place] [address]Mr# [phone] hepatitis c ab on 2 HCV AB NONREACTIVE NONREACTIVE Normal 12-14-2017 [facility] (39550) Comment: Result Comment: SCREENING TE ST NEGATIVENONREACTIVE HCV ANTIBODY SCREEN IS CONSISTENT WITH NO HCVINFECT ION, UNLESS RECENT INFECTION IS SUSPECTED OR OTHEREVIDENCE EXISTS TO RENATO HAZEL HCV INFECTION Performed By: #### L200.0000 0 ####[facility] [place] [address].[place], [place] [address]DS# [phone] MILWAUKIE HOSPITAL [id number] [place], [place] [address]Dr# [phone]#### L550.45183 ####[facility] [id number] [place], [place] [address]Tp# [phone] hep b core igm on 2 HEP B CORE IGM NONREACTIVE NONREACTIVE Normal 12-14-2017 [facility] (00 000) Comment: Result Comment: RESULTS WERE OBTAINED WITH THE [employer] XP ANTI-HBC IGMEIA. VALUES OBTAINED WITH DIFFERENT MANUFACTURERS' ASSAYMETHODS MAY NOT BE USED INTERCHANGEABLY. Performed By: #### L200.0000 0 ####[facility] [place] [address].[place], [place] [address]QX# [phone] MILWAUKIE HOSPITAL [id number] [place] [address]Of# [phone]#### L550.63194 ####[facility] [id number] [place], [place] [address]Zj# [phone] hep a igm ab on 201 05-20-26 HEP A IGM AB NONREACTIVE NONREACTIVE Normal 12-14-2017 [facility] (43886) Comment: Result Comment: RESULTS WERE OBTAINED WITH THE [employer] C[employer] XP HEPATITIS AIgM. VALUES OBTAINED WITH D IFFERENT MANUFACTURERS' ASSAYMETHODS MAY NOT BE USED INTERCHANGEABLY. Performed By: #### L500.0140 0, L500.32016, L500.02940, L500.61266, L500.34350, L500.36652, L540 .81819, L540.84945, L540.50434, L540.09149, L550.75451 ####[facility] [id number] [place], [place] [address]Fn# [phone] hbsag on 2017-12-14 BSA (Body Surface NONREACTIVE NONREACTIVE Normal 12-14-[address] [place] [address] Area) [place] (00 000) Comment: Result Comment: RESULTS WERE OBTAINED WITH THE OfficialVirtualDJAUR XP.VALUES OBTAINED WITH DIFFERENT MANUFACTURERS ' ASSAY METHODSMAY NOT BE USED INTERCHANGEABLY. Performed By: #### L500.0140 0, L500.72464, L500.89209, L500.01293, L500.48621, L500.95796, L540 .92704, L540.60028, L540.50496, L540.05815, L550.41305 ####[facility] BYUCJTZXFV5761 [place], [place] [address]Qi# [phone] gfr est on IF AMER Greater than 60 Normal 12-14-[address] [place] [address] ([address]) Comment: Performed By: #### L500.0140 0, L500.09768, L500.22779, L500.04812, L500.03261, L500.34124, L540 .04437, L540.52735, L540.76763, L540.66795, L550.72385 ####[facility] [id number] [place], [place] [address]Rr# [phone] IF non-AFR AMER Greater than 60 Normal 12-14-[address] [place] [address] (90454) Comment: Performed By: #### L500.0140 0, L500.09559, L500.28408, L500.80959, L500.35873, L500.15721, L540 .74752, L540.18801, L540.71935, L540.22657, L550.22034 ####[facility] [id number] [place], [place] [address]Bb# [phone] cmp on 2017-12-14 Alanine aminotransferase (ALT) 51 13-61 IU/L Normal 12-14-2017 [facility] (00 000) Comment: Result Comment: RESULTS MAY BE FALSELY DEPRESSED AFTER THE ADMINISTRATION OFSULFASALAZINE AND/OR SULFA PYRIDINE. Performed By: #### L500.0140 0, L500.73233, L500.13300, L500.78081, L500.79338, L500.50772, L540 .65908, L540.55127, L540.41408, L540.85575, L550.76555 ####[facility] UMJCJBISTZ8528 [place], [place] [address]Oo# [phone] Albumin 4.5 3.2-5.0 GM/DL Normal 12-14-2017 [facility] (46490) Comment: Performed By: #### L500.0140 0, L500.26922, L500.14451, L500.34619, L500.66476, L500.52357, L540 .45499, L540.80432, L540.38951, L540.47109, L550.70836 ####[facility] PFETTYLVFR2958 [place], [place] [address]Gi# [phone] Albumin/Globulin Ratio 1.3 0.8-2.0 {ratio} Normal 018 [facility] (00 000) Comment: Performed By: #### L500.0140 0, L500.61187, L500.60928, L500.05670, L500.22237, L500.10832, L540 .58830, L540.35398, L540.87337, L540.21165, L550.47391 ####[facility] GZQWERUZJH1787 [place], [place] [address]Lf# [phone] ALK PHOS 82 45-117 U/L Normal 12-14-2017 [facility] (32774) Comment: Performed By: #### L500.0140 0, L500.40516, L500.46507, L500.93714, L500.43554, L500.93824, L540 .50007, L540.48708, L540.32620, L540.19461, L550.25530 ####[facility] KUFVLHEBPR8441 [place], [place] [address]Tl# [phone] Anion gap 10 5-16 MMOL/L Normal 12-14-2017 [facility] (00101) Comment: Performed By: #### L500.0140 0, L500.44321, L500.10275, L500.54550, L500.17179, L500.03825, L540 .23856, L540.53037, L540.07905, L540.72699, L550.54849 ####[facility] DMQTYXXDGJ9971 [place], [place] [address]Cn#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
== END 2020-02-29 22:43 | disposition home or self-care (01) ==
LOC: ED 22:40
PROVIDERS: Emergency Provider Emergency Medicine
DX: R19.7 Diarrhea, unspecified (principal); R10.9 Unspecified abdominal pain; F17.200 Nicotine dependence, unspecified, uncomplicated
CPT/HCPCS: 96372; 99283

== ENCOUNTER 2020-09-05 03:40 | Emergency (ER) | payer MEDICAID, SELFPAY ==
[2020-09-05 03:40] VITALS: BP 135/74; PULSE 63; RESP 20; TEMP 36.3; O2SAT 98; BMI 22.6
--- NOTE | 2020-09-05 03:52 | ED.DCSUM_ITS ---
History of Present Illness Chief Complaint: Constipation Detail of Chief Complaint: abd pain Informant: Patient - Abdominal Pain/Flank Pain Onset: Hours - 1 Context: Sudden Onset - woke him up Timing: Continuous Quality: Cramping Location: - - periumbilical Current Severity: Moderate Maximum Severity: Severe Worsened by: Nothing Relieved by: Nothing - Nausea/Vomiting/Emesis GI Symptom: Nausea, Vomiting Quality: Nonbilious. Negative for: Blood streaks, Coffee ground, Hematemesis Episodes: 2 - Diarrhea/Melena/Hematochezia GI Symptom: Negative for: Diarrhea, Melena, Hematochezia Associated Symptoms: Negative for: Dysuria, Frequency, Hematuria, Urgency Narrative: Patient states he has not had a bowel movement in 4 days which is unusual for him, has a history of constipation problems in the past, woke up suddenly with periumbilical abdominal pain and the feeling like he needed to have a bowel movement. He has been trying but unable. He vomited twice as a result of all of this. Pain does not radiate or migrate. Denies any fevers or illness recently, no injury. Urinating normally. - Past Medical History (1) Substance abuse Status: Chronic Past Medical History - Allergies and Home Meds Allergies/Adverse Reactions: Allergies No Known Allergies Allergy (Verified 02/07/20 08:42) Primary Care Physician: Care Physician,No Primary [Primary Care Provider] - Surgical History: noncontributory Smoking Status: Current some day smoker Review of Systems General: Denies: Chills, Fever, Sweats Eyes: Denies: Visual changes - bilaterally, Diplopia ENT: Denies: Rhinorrhea, Sore throat Cardiovascular: Denies: Chest pain, Palpitations Respiratory: Denies: Dyspnea, Cough, Dyspnea on exertion Gastrointestinal: Reports: Abdominal pain, Constipation. Denies: Nausea, Vomiting, Diarrhea, Melena, Hematochezia Genitourinary: Denies: Dysuria, Hematuria, Frequency Musculoskeletal: Denies: Myalgias, Back pain, Swelling, Extremity Pain Skin: Denies: Rash, Wounds Neurological: Denies: Headache, Weakness, Numbness Physical Exam Vital Signs/Narrative: Vital Signs Temp Pulse Resp BP Pulse Ox 09/05/20 03:40 97.4 F L 63 20 H 135/74 H 98 Inital Vital Signs reviewed: Yes General: Well nourished, Well developed, No Acute Distress Head: Normocephalic, Atraumatic Eyes: Perrl, EOMI ENT: Moist mucous membranes, No rhinorrhea Neck: Supple, Nontender Cardiovascular: Regular rate, Regular rhythm, No murmurs Respiratory: No distress, CTA bilaterally, Chest nontender Abdomen: Soft, Nondistended, Normal bowel sounds, Tender - Left lower quadrant. Otherwise nontender.. Negative for: Guarding, Rebound tenderness Rectal: Nontender - And no obstipation palpable. No blood. Light-colored brown stool traces. Back: Nontender, Normal Inspection Extremities: Nontender, No edema Skin: Normal color, No rash Neurological: Alert, Oriented x3, Cranial nerves II-XII grossly intact, Normal Strength, Normal Sensation Psychological: Normal affect, Normal Mood Diagnostic/Tx/Re-eval - Medical Decision Making Patient was amenable to rectal exam, which did not yield any palpable obstipation, so he then did a fleets enema. This resulted in a good bowel movement and almost complete resolution of his discomfort, when I reexamined him his left lower quadrant tenderness is gone, he feels better enough to go home. Prescribed Colace and advised to follow-up. ED Disposition - Plan for ED Patient: Disposition: Home or Assisted Living Diagnosis: Left lower quadrant abdominal pain, Constipation Instructions: ED Constipation Prescriptions: Docusate Sodium [Colace] 100 mg PO BID #40 cap Transmission Status: Pending to [employer] #30 Referrals: Viky Mcduffie [NON-STAFF] -
[2020-09-05] MEDS: Fleet Enema 1 ML RECTAL (03:59)
== END 2020-09-05 04:39 | disposition home or self-care (01) ==
LOC: ED 04:37
PROVIDERS: Emergency Provider Emergency Medicine
DX: R10.32 Left lower quadrant pain (principal); K59.00 Constipation, unspecified; F17.200 Nicotine dependence, unspecified, uncomplicated
CPT/HCPCS: 99282

== ENCOUNTER 2020-10-16 08:45 | Emergency (ER) | payer MEDICAID, SELFPAY ==
[2020-10-16 08:45] VITALS: BP 134/95; PULSE 72; RESP 16; TEMP 36.7; O2SAT 99; BMI 25.0
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
--- NOTE | 2020-10-16 09:25 | NURSING ---
CALLED [facility] ER DOC TO ER DOC
[2020-10-16] MEDS: Morphine 4 MG/ML Syringe IM (09:36)
[2020-10-16] MEDS: Lidocaine 1%/Epi 1:100 (30ml) 30 ML VIAL 7 ML INFILT (10:33)
[2020-10-16 11:32] VITALS: PULSE 120; RESP 16; O2SAT 98
--- NOTE | 2020-10-16 11:32 | ED.RN ---
pt screaming in the room and stating fuck you get out of my life pt crying. pt was asked if he would be ok going home. pt stated that he would be. Pt told to go to get his rx at [facility] and was given the name and number of the dr at [facility] to follow up with. pt ambulated from the ER without difficulty
== END 2020-10-16 11:32 | disposition home or self-care (01) ==
PROVIDERS: Emergency Provider Emergency Medicine
DX: S51.812A Laceration without foreign body of left forearm, initial encounter (principal); S56.922A Laceration of unspecified muscles, fascia and tendons at forearm level, left arm, initial encounter; W26.0XXA Contact with knife, initial encounter; Y93.02 Activity, running; Y92.9 Unspecified place or not applicable; F17.200 Nicotine dependence, unspecified, uncomplicated
CPT/HCPCS: 12004; 29125; 96372; 99282

== ENCOUNTER 2020-10-29 17:31 | Emergency (ER) | payer MEDICAID, SELFPAY ==
[2020-10-29 17:31] VITALS: BP 119/87; PULSE 82; RESP 16; TEMP 35.7; O2SAT 97; BMI 25.0
--- NOTE | 2020-10-29 17:53 | ED.DEP ---
ED Disposition - Plan for ED Patient: Instructions: ED Stitches/Staple Removal No ... Referrals: Care Physician,No Primary [Primary Care Provider] -
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
[2020-10-29] MEDS: BACITRACIN 15 GM Tube 1 APPLIC TOPICAL (18:41)
== END 2020-10-29 18:45 | disposition home or self-care (01) ==
LOC: ED 18:09
PROVIDERS: Emergency Provider Emergency Medicine
DX: Z48.02 Encounter for removal of sutures (principal)
CPT/HCPCS: 99282